=== PATIENT | male | born 1950 | race Caucasian/White ===

== ENCOUNTER 2018-11-13 11:20 | Inpatient (IN) ==
--- NOTE | 2018-11-13 11:31 | Emergency Department Note ---
Disposition Clinical Impression: NSTEMI (non-ST elevated myocardial infarction), Altered level of consciousness COPD (chronic obstructive pulmonary disease) Qualifiers: COPD type: unspecified COPD Qualified Code(s): J44.9 - Chronic obstructive pulmonary disease, unspecified Disposition: Admitted As Inpatient Condition: Fair Referrals: NONE,PCP [Primary Care Provider] - Forms: ED Satisfaction Letter Time of Disposition: 12:56 General Adult HPI - General Stated complaint: Chest Pain Time Seen by Provider: 11/13/18 11:28 - Related Data Previous Rx's Medication Instructions Recorded HYDROcodone/Acet 5/325 mg [[place] 1 tab PO Q4H PRN 3 Days #15 tab 04/26/18 5-325 mg] Allergies Allergy/AdvReac Type Severity Reaction Status Date / Time No Known Allergies Allergy Verified 04/26/18 14:16 Past Medical History - Past Medical History Medical history: Reports: no medical history Psychiatric history: Reports: depression - Social History Smoking Status: Current some day smoker Alcohol use: Reports: none Drug use: Reports: none Course Vital Signs Temperature 97.7 F 11/13/18 11:22 Pulse Rate 91 11/13/18 11:22 Respiratory Rate 20 11/13/18 11:22 Blood Pressure 94/73 11/13/18 11:22 O2 Sat by Pulse Oximetry 96 11/13/18 11:22 Temperature 97.7 F 11/13/18 11:22 Pulse Rate 91 11/13/18 11:22 Respiratory Rate 20 11/13/18 11:22 Blood Pressure 103/71 11/13/18 12:02 O2 Sat by Pulse Oximetry 96 11/13/18 11:22 Oxygen Delivery Oxygen Delivery Room Air Medical Decision Making - Lab Data Result diagrams: 11/13/18 11:46 11/13/18 11:46 Lab Results 11/13/18 11/13/18 Range/Units 11:46 11:46 WBC 11.4 H (4.3-11.1) K/mcL RBC 4.23 (4.19-5.50) M/mcL Hgb 12.7 L (12.9-16.9) g/dL Hct 37.9 (37.5-50.1) % MCV 89.6 (83.0-100.0) fL MCH 30.0 (28.0-33.3) pg MCHC 33.5 (31.6-35.5) g/dL RDW 13.2 (11.5-14.5) % Plt Count 203 (140-400) K/mcL MPV 10.1 (9.4-12.4) fL Immature Gran % 0.3 (0-4) % Seg Neutrophils % 83.6 % Lymphocytes % 8.0 % Monocytes % 8.0 % Eosinophils % 0.0 % Basophils % 0.1 % Neutrophils # 9.6 H (1.6-8.9) K/mcL Lymphocytes # 0.9 (0.6-4.6) K/mcL Monocytes # 0.9 (0.0-1.3) K/mcL Eosinophils # 0.0 (0.0-0.6) K/mcL Basophils # 0.0 (0.0-0.2) K/mcL Sodium 138 (136-145) mEq/L Potassium 4.5 (3.5-5.1) mEq/L Chloride 104 (98-107) mEq/L Carbon Dioxide 26 (23-29) mEq/L BUN 20 (8-23) mg/dL Creatinine 0.95 (0.70-1.30) mg/dL Est GFR ( Amer) > 60 (> 60) Est GFR (Non-Af Amer) > 60 (> 60) BUN/Creatinine Ratio 21 (6-26) Glucose 134 H (70-105) mg/dL Calculated Osmolality 291 (280-300) Calcium 9.4 (8.6-10.3) mg/dL Troponin I 0.10 H* (< 0.04) ng/mL Critical Care Time Critical Care Time: No Attestation Statement - Attestation Attestation: I examined this patient and my medical decision-making was reviewed with the ORCHID WORKER/PA/Advanced Practice Nurse/Resident Physician. I agree with the documented findings, disposition and treatment plan as described except to the extent set forth below. I did see the patient immediately upon arrival and also spoke with the paramedics and the story is that he was at the hardener helper yesterday and they thought he was confused [facility] him with altered consciousness with a negative ct scan of the brain and the patient did have an EKG yesterday and I did review that which showed ST elevation anteriorly almost identical to the EKG that was done today while the patient was having anjel st pain. At this point he denies any chest pain or tightness or discomfort or pressure or heaviness whatsoever. He has his chronic dyspnea but no new dyspnea. No diaphoresis. He does know the name of the hospital and the year and the name of the president and he will have a repeat EKG done now. We are told that his troponin was 0.13 at the [place] and this will be repeated also. I did speak with the aircraft engine installer at 1055 when the new the patient was on the way here to give them a heads up but does not seem at this point the patient will be a STEMI alert. 1128 I did review the EKG and also sent this to the candle wrapping machine operator. The patient has normal sinus rhythm with a rate of [address] and several millimeters of ST elevation in leads V2, V3 and V4 which is very similar to the EKG which was done earlier this morning and also very similar to an EKG that was done yesterday. The patient remains pain-free at this time. Labs are pending here. Patient will be admitted. [address] did speak with Dr[address] Link and he did review the EKG from our emergency department here at 11:31 AM and agrees that the patient is not a emergent catheterization candidate and agrees with the aspirin. Would like a inpatient echo to be done but this does not need to be done stat. I did inform him of the elevated troponin from the [facility]. He agrees with admission to the hospitalist with diagnostic cardiology consult in and we will get these things done when our troponin result returns here. 1146 Hospitalist has accepted the patient for admission. I did speak with Dr. link again and he does not feel he needs consult did. The repeat troponin is going down and is now 0.10. Patient is bright and alert. He is not in any respiratory distress. Blood pressure will be watched closely here in the hospit al. It has increased and is now systolic 103 but the patient is asymptomatic regarding the blood pressure. 1253
--- NOTE | 2018-11-13 11:31 | Emergency Department Note ---
Disposition Clinical Impression: NSTEMI (non-ST elevated myocardial infarction), Altered level of consciousness COPD (chronic obstructive pulmonary disease) Qualifiers: COPD type: unspecified COPD Qualified Code(s): J44.9 - Chronic obstructive pulmonary disease, unspecified Disposition: Admitted As Inpatient Condition: Fair Referrals: NONE,PCP [Non-Partnered Physician] - Time of Disposition: 14:00 Chest Pain HPI - General Chief Complaint: ED Chest Pain Stated Complaint: Chest Pain Time Seen by Provider: 11/13/18 11:28 Source: patient Limitations: no limitations Vital Signs Reviewed: Yes Nursing Notes Reviewed: Yes - History of Present Illness HPI Narrative: Mr. Swain is a 67M who presents today from the [facility] for reported EKG changes. He was admitted to the [facility] yesterday after reported confusion while at the ophthalmologists office. Patient is currently alert and oriented 3 and aware of recent events. He currently has no complaints. Denies any chest pain, shortness of breath, nausea, vomiting, dizziness, lightheadedness, headaches, numbness or tingling. Reported he had none of these symptoms yesterday either. Of note an EKG was obtained at the [facility] yesterday which showed slight ST segment elevation in leads V2 through V4. The same ST segment changes were seen and a repeat [facility] EKG as well today. Reported troponin from [facility] was 0.13. - Related Data Home Medications Medication Instructions Recorded Confirmed No Known Home Drugs 11/13/18 11/13/18 Allergies Allergy/AdvReac Type Severity Reaction Status Date / Time No Known Allergies Allergy Verified 04/26/18 14:16 All systems ED: reviewed and negative except as stated. Review of Systems: As Per HPI Constitutional: Denies: fever, chills Cardiovascular: Denies: chest pain, palpitations, edema, syncope Respiratory: Denies: cough, dyspnea, wheezes Gastrointestinal: Denies: abdominal pain, nausea, vomiting Chest Pain PMH - Past Medical History Medical history: Reports: no medical history Psychiatric history: Reports: depression - Social History Smoking Status: Current some day smoker Alcohol use: Reports: none Drug use: Reports: none Physical Exam Constitutional: Elderly appearing male in no acute distress. Head: Normocephalic, atraumatic Eyes: PERRL, EOMI, sclera anicteric Lungs: Clear to auscultation bilaterally. Nonlabored breathing. No wheezes, rales, or rhonchi noted. Cardiac: RRR. +s1 +S2 Grade 2 blowing systolic murmur. No clicks, or rubs noted. GI: Abdomen soft, nontender, nondistended. Extremities: Warm, radial pulses +2 and symmetrical. No cyanosis, pedal edema, or calf tenderness. Neuro: Alert and oriented 3. No focal deficits. Normal speech. Skin: Warm, dry, and intact. Course Course Narrative: Initial history and physical exam concerning for ACS. Initial evaluation included EKG, chest x-ray, CBC, BMP, and troponin. EKG showed continued ST segment elevation in V2 through the former as seen on previous EKGs from the [facility]. Chest x-ray was without acute abnormality. The labs were grossly unremarkable, however troponin was elevated at 0.10 which is decreased when compared to troponin from [facility]. Patient remained asymptomatic throughout this entire process with no acute complaints. Patient's case was discussed with Dr. Elizondo of cardiology, including personally reviewing the EKG. He agreed that patient is not a candidate for emergent cardiac catheterization at this point. Recommended aspirin. Stated he would prefer the patient have an inpatient echo, but this does not need to be done urgently. Discussed patient's case with hospitalist, Dr. Cano, who accepted the patient for admission. Patient stable for transfer to floor. Vital Signs Temperature 97.7 F 11/13/18 11:22 Pulse Rate 91 11/13/18 11:22 Respiratory Rate 20 11/13/18 11:22 Blood Pressure 94/73 11/13/18 11:22 O2 Sat by Pulse Oximetry 96 11/13/18 11:22 Temperature 97.8 F 11/13/18 16:44 Pulse Rate 82 11/13/18 16:44 Respiratory Rate 16 11/13/18 16:44 Blood Pressure 112/64 11/13/18 16:44 O2 Sat by Pulse Oximetry 96 11/13/18 16:44 Oxygen Delivery Oxygen Delivery Room Air Chest Pain - Medical Records Medical records reviewed: Yes I reviewed the patient's medical records. - Lab Data Lab results reviewed: Yes I reviewed the patient's lab results. Result diagrams: 11/13/18 15:51 11/13/18 11:46 Lab Results 11/13/18 11/13/18 11/13/18 Range/Units 11:46 11:46 11:46 WBC 11.4 H (4.3-11.1) K/mcL RBC 4.23 (4.19-5.50) M/mcL Hgb 12.7 L (12.9-16.9) g/dL Hct 37.9 (37.5-50.1) % MCV 89.6 (83.0-100.0) fL MCH 30.0 (28.0-33.3) pg MCHC 33.5 (31.6-35.5) g/dL RDW 13.2 (11.5-14.5) % Plt Count 203 (140-400) K/mcL MPV 10.1 (9.4-12.4) fL Immature Gran % 0.3 (0-4) % Seg Neutrophils % 83.6 % Lymphocytes % 8.0 % Monocytes % 8.0 % Eosinophils % 0.0 % Basophils % 0.1 % Neutrophils # 9.6 H (1.6-8.9) K/mcL Lymphocytes # 0.9 (0.6-4.6) K/mcL Monocytes # 0.9 (0.0-1.3) K/mcL Eosinophils # 0.0 (0.0-0.6) K/mcL Basophils # 0.0 (0.0-0.2) K/mcL PT (9.4-12.1) Seconds INR Heparin Anti-Xa, Unfract (0.30-0.70) IU/mL Sodium 138 (136-145) mEq/L Potassium 4.5 (3.5-5.1) mEq/L Chloride 104 (98-107) mEq/L Carbon Dioxide 26 (23-29) mEq/L BUN 20 (8-23) mg/dL Creatinine 0.95 (0.70-1.30) mg/dL Est GFR ( Amer) > 60 (> 60) Est GFR (Non-Af Amer) > 60 (> 60) BUN/Creatinine Ratio 21 (6-26) Glucose 134 H (70-105) mg/dL Calculated Osmolality 291 (280-300) Calcium 9.4 (8.6-10.3) mg/dL Magnesium (1.6-2.6) mg/dL Troponin I 0.10 H* (< 0.04) ng/mL B-Natriuretic Peptide 613 H (Less than 100) pg/mL 11/13/18 11/13/18 11/13/18 Range/Units 13:57 13:57 15:51 WBC 12.5 H (4.3-11.1) K/mcL RBC 4.21 (4.19-5.50) M/mcL Hgb 12.8 L (12.9-16.9) g/dL Hct 37.2 L (37.5-50.1) % MCV 88.4 (83.0-100.0) fL MCH 30.4 (28.0-33.3) pg MCHC 34.4 (31.6-35.5) g/dL RDW 13.4 (11.5-14.5) % Plt Count 187 (140-400) K/mcL MPV 10.2 (9.4-12.4) fL Immature Gran % (0-4) % Seg Neutrophils % % Lymphocytes % % Monocytes % % Eosinophils % % Basophils % % Neutrophils # (1.6-8.9) K/mcL Lymphocytes # (0.6-4.6) K/mcL Monocytes # (0.0-1.3) K/mcL Eosinophils # (0.0-0.6) K/mcL Basophils # (0.0-0.2) K/mcL PT (9.4-12.1) Seconds INR Heparin Anti-Xa, Unfract (0.30-0.70) IU/mL Sodium (136-145) mEq/L Potassium (3.5-5.1) mEq/L Chloride (98-107) mEq/L Carbon Dioxide (23-29) mEq/L BUN (8-23) mg/dL Creatinine (0.70-1.30) mg/dL Est GFR ( Amer) (> 60) Est GFR (Non-Af Amer) (> 60) BUN/Creatinine Ratio (6-26) Glucose (70-105) mg/dL Calculated Osmolality (280-300) Calcium (8.6-10.3) mg/dL Magnesium 2.3 (1.6-2.6) mg/dL Troponin I 0.12 H* (< 0.04) ng/mL B-Natriuretic Peptide (Less than 100) pg/mL 11/13/18 Range/Units 15:51 WBC (4.3-11.1) K/mcL RBC (4.19-5.50) M/mcL Hgb (12.9-16.9) g/dL Hct (37.5-50.1) % MCV (83.0-100.0) fL MCH (28.0-33.3) pg MCHC (31.6-35.5) g/dL RDW (11.5-14.5) % Plt Count (140-400) K/mcL MPV (9.4-12.4) fL Immature Gran % (0-4) % Seg Neutrophils % % Lymphocytes % % Monocytes % % Eosinophils % % Basophils % % Neutrophils # (1.6-8.9) K/mcL Lymphocytes # (0.6-4.6) K/mcL Monocytes # (0.0-1.3) K/mcL Eosinophils # (0.0-0.6) K/mcL Basophils # (0.0-0.2) K/mcL PT 11.0 (9.4-12.1) Seconds INR 1.0 Heparin Anti-Xa, Unfract 0.19 L (0.30-0.70) IU/mL Sodium (136-145) mEq/L Potassium (3.5-5.1) mEq/L Chloride (98-107) mEq/L Carbon Dioxide (23-29) mEq/L BUN (8-23) mg/dL Creatinine (0.70-1.30) mg/dL Est GFR ( Amer) (> 60) Est GFR (Non-Af Amer) (> 60) BUN/Creatinine Ratio (6-26) Glucose (70-105) mg/dL Calculated Osmolality (280-300) Calcium (8.6-10.3) mg/dL Magnesium (1.6-2.6) mg/dL Troponin I (< 0.04) ng/mL B-Natriuretic Peptide (Less than 100) pg/mL - Radiology Data Radiology results reviewed: Yes I reviewed the patient's radiology results. Chest X-Ray 11/13/18 11:28 IMPRESSION: No acute cardiopulmonary process. D/ / Kirk Flores MD / Kirk Flores MD Interpreting Provider: Kirk Flores MD - EKG Data EKG attestation: Yes I reviewed and interpreted this EKG. EKG shows normal: sinus rhythm Rate: normal Rhythm: NSR [place]/QRS: normal ST segment elevation in: v2, v3, v4 When compared to previous EKG there are: no significant changes (when compared to [facility] ) Heart Score - Score History: Slightly Suspicious EKG: Non Specific repolarisation Disturbance Age: Greater than 65 Risk Factors: No risk factors known Troponin: 1-3x normal limit HEART Score Total: 4
[2018-11-13] MEDS ORDERED: 0.9 % Sodium Chloride 500 ML IVC ONE (11:45)
[2018-11-13 12:05] LABS: Basophils % 0.1 %; Hematocrit 37.9 % (37.5-50.1); Hemoglobin 12.7 g/dL (12.9-16.9); Immature Granulocytes % 0.3 % (0-4); Lymphocytes # 0.9 K/mcL (0.6-4.6); Mean Corpuscular HGB Conc 33.5 g/dL (31.6-35.5); Mean Corpuscular Volume 89.6 fL (83.0-100.0); Mean Platelet Volume 10.1 fL (9.4-12.4); Monocytes # 0.9 K/mcL (0.0-1.3); Neutrophils # 9.6 K/mcL (1.6-8.9); Platelet Count 203 K/mcL (140-400); Red Blood Count 4.23 M/mcL (4.19-5.50); Red Cell Distribution Width 13.2 % (11.5-14.5); Segmented Neutrophils % 83.6 %
[2018-11-13 12:21] LABS: BUN/Creatinine Ratio 21 (6-26); Blood Urea Nitrogen 20 mg/dL (8-23); Calcium 9.4 mg/dL (8.6-10.3); Carbon Dioxide 26 mEq/L (23-29); Chloride 104 mEq/L (98-107); Glucose 134 mg/dL (70-105); Osmolality,Calculated 291 (280-300); Potassium 4.5 mEq/L (3.5-5.1); Sodium 138 mEq/L (136-145); eGFR For Non-African Americans > 60 (> 60)
[2018-11-13] MEDS ORDERED: *HR* Promethazine 25 MG/ML VIAL IVP PRN (13:38)
[2018-11-13] MEDS ORDERED: Mag Hydrox/Al Hydrox/Simeth 30 ML UDC PO PRN (13:38)
[2018-11-13] MEDS ORDERED: Acetaminophen 325 MG TABLET PO PRN (13:38)
[2018-11-13] MEDS ORDERED: Naloxone 0.4 MG/ML INJ IVP PRN (13:38)
[2018-11-13] MEDS ORDERED: MOM Conc 10 ML UD.LIQ PO PRN (13:38)
[2018-11-13] MEDS ORDERED: Ondansetron 4 MG/2 ML VIAL IVP PRN (13:38)
[2018-11-13] MEDS ORDERED: Ipratropium/Albuterol Neb 3 ML IH PRN (13:43)
--- NOTE | 2018-11-13 14:04 | Internal Med History&Physical ---
Date of Encounter: 11/13/18 Time of Encounter: 13:46 Internal Medicine - H&P: HPI Admitted From: Home Plans for Post Hospital Care: Home History of present illness: Mr. Swain is a 67 year old male with history of CAD and the smoking transferred from the [facility] because of chest pain and abnormal EKG. Patient is a poor historian, part of the history was obtained from chart review. Patient was seen by his project management analyst on Friday and was found to be confused, he was subsequently sent to the [facility], where he developed later chest pain with abnormal EKG. Labs at that time also showed elevated troponin at 0.13. CBC: WBC 6.1, RBC 4.66, Hgb 14.3, HCT 40.8, platelet 225. More labs are as follows. BMP: sodium 13 138, potassium 4.6, chloride 107, CO2 25, glucose 144, calcium 9.1, 19, creatinine 0.79, BNP 1270. An ABG was obtained which showed pH 7.41, PCO2 36, PO2 75, lactate 0.5, HCO3 23, base excess -1. TSH 0.0171, free T4 1 0.18, AST/ALT 16/18, total bili 1.0, alkaline phosphatase 9.0, total protein 6.6, albumin 3.4, cholesterol 144, TG 50, HDL 53, and LDL 81. The chest x-ray at that time showed no acute radiological abnormalities and CT head also showed no acute intracranial abnormalities. He was treated with oral aspirin, IV Rocephin, Lovenox for DVT prophylaxis, oral isosorbide and metoprolol, IV steroids and breathing treatment was also given. On 11/13, He was transferred to this institution for further evaluation, cardiology was consulted, EKG and labs was reviewed, patient was not deemed as cardiac catheter candidate, and patient was recommended medical management. Patient is admitted under medical team and cardiology will be consulted. CODE STATUS discussed with patient, he wishes full code. Past Med Surg Social Fam HX - Past Medical History Medical history: no medical history Psychiatric history: depression - Social History Smoking Status: Current some day smoker Alcohol use: none Drug use: none Internal Medicine - H&P: Meds No Known Home Drugs 11/13/18 [History] Allergy/AdvReac Type Severity Reaction Status Date / Time No Known Allergies Allergy Verified 04/26/18 14:16 All Systems PM: A 10-system review of systems was performed and is negative for pertinent findings except as documented above in the HPI. Review of systems: REVIEW OF SYSTEMS: CONSTITUTIONAL: No weight loss, fever, chills, weakness or fatigue. HEENT: Eyes: No visual loss, blurred vision, double vision or yellow sclerae. Ears, Nose, Throat: No hearing loss, sneezing, congestion, runny nose or sore throat. SKIN: No rash or itching. CARDIOVASCULAR: see HPI. RESPIRATORY: No shortness of breath, cough or sputum. GASTROINTESTINAL: No anorexia, nausea, vomiting or diarrhea. No abdominal pain or blood. GENITOURINARY: No dysuria, urgency, or frequency. NEUROLOGICAL: No headache, dizziness, syncope, paralysis, ataxia, numbness or tingling in the extremities. No change in bowel or bladder control. MUSCULOSKELETAL: No muscle, back pain, joint pain or stiffness. HEMATOLOGIC: No anemia, bleeding or bruising. LYMPHATICS: No enlarged nodes. No history of splenectomy. PSYCHIATRIC: No history of depression or anxiety. ENDOCRINOLOGIC: No reports of sweating, cold or heat intolerance. No polyuria or polydipsia. - Constitutional Vitals: Temp Pulse Resp BP Pulse Ox 97.7 F 91 20 103/71 96 11/13/18 11:22 11/13/18 11:22 11/13/18 11:22 11/13/18 12:02 11/13/18 11:22 General appearance: Present: A&O X 2 Exam: PHYSICAL EXAMINATION: GENERAL APPEARANCE: The patient is alert, oriented and in no acute distress. HEENT: Head is normocephalic. The sinuses are nontender. Pupils are equal and reactive. The nares are patent. Oropharynx clear without lesions. NECK: Supple without lymphadenopathy. HEART: Regular rate and rhythm. LUNGS: No crackles or wheezes are heard. ABDOMEN: Soft, nontender, nondistended with good bowel sounds heard. Inguinal area is normal. EXTREMITIES: Without cyanosis, clubbing or edema. NEUROLOGICAL: Gross nonfocal. SKIN: trace edema. Internal Med - H&P Results - Labs CBC & Chem 7: 11/13/18 11:46 11/13/18 11:46 Labs: Short CBC 11/13/18 Range/Units 11:46 WBC 11.4 H (4.3-11.1) K/mcL Hgb 12.7 L (12.9-16.9) g/dL Hct 37.9 (37.5-50.1) % Plt Count 203 (140-400) K/mcL Neutrophils # 9.6 H (1.6-8.9) K/mcL BMP 11/13/18 11:46 Sodium 138 Potassium 4.5 Chloride 104 Carbon Dioxide 26 BUN 20 Creatinine 0.95 Glucose 134 H Calcium 9.4 Cardiac Enzymes 11/13/18 Range/Units 11:46 Troponin I 0.10 H* (< 0.04) ng/mL - Impressions ITS Impressions Chest X-Ray 11/13/18 11:28 IMPRESSION: No acute cardiopulmonary process. D/ / Kirk Flores MD / Kirk Flores MD Interpreting Provider: Kirk Flores MD - Assessment and Plan (1) Altered level of consciousness Current Visit: Yes Status: Acute Assessment and plan: 85-year-old male with history of CAD and a smoker presented with acute mental status change and the abnormal EKG. Workup at outside hospital was unrevealing. UA was normal, chest x-ray and head CT were unremarkable. Patient received 1 dose of Rocephin at a [facility]. Unclear his mental status change is related to acute ND. His mental status seems improved upon my assessment. We will continue to treat his underlying medical conditions including acute ND and COPD. Continue monitoring mental status. (2) Acute myocardial infarction Current Visit: Yes Status: Acute Assessment and plan: Patient developed chest pain while at the [facility], EKG obtained at that time showed ST-T elevation on V2 to V4 with elevated troponin. Patient received aspirin, Lovenox, metoprolol, and isosorbide. Upon arrival to this hospital, a repeat EKG redemonstrated ST-T elevation in V2 to V4 with deep Q wave. Cardiology was consulted, patient was not deemed as a candidate for emergent cardiac catheter, medical management was recommended. We will continue monitoring troponin, telemetry monitoring, EKG as needed. BP was borderline low, likely not tolerate BP medications, will continue aspirin, will add Plavix. We will restart patient on metoprolol once his BP improves. Echocardiogram in the morning. Cardiology following. Qualifiers: Myocardial infarction type: unspecified Involved coronary artery: unspecified coronary artery Qualified Code(s): I21.9 - Acute myocardial infarction, unspecified (3) Smoker Current Visit: No Status: Chronic Assessment and plan: Smoking cessation discussed with patient, he understood. (4) COPD (chronic obstructive pulmonary disease) Current Visit: Yes Status: Acute Assessment and plan: Mere never been diagnosis with COPD, however, he does have history of smoking, diffuse wheezing appreciated on physical exam. Or start patient on DuoNeb scheduled and as needed. Qualifiers: COPD type: unspecified COPD Qualified Code(s): J44.9 - Chronic obstructive pulmonary disease, unspecified (5) DVT prophylaxis Current Visit: Yes Status: Acute Assessment and plan: Heparin subcutaneous. - Time Spent With Patient Total time spent is greater than 50% in coordination of care (as documented) at patient's floor/unit and/or counseling patient: Greater than 35 minutes
[2018-11-13] MEDS ORDERED: Furosemide 40 MG/4 ML VIAL IVP ONE (15:08)
[2018-11-13] MEDS ORDERED: *HR* Heparin 5,000 UNIT/ML VIAL IVP PRN ×2 (15:10)
[2018-11-13] MEDS: Ipratropium/Albuterol Neb 3 ML IH SCH ×3 (15:44→23:25)
[2018-11-13] MEDS: Heparin 25,000 UNIT/250 ML D5W 25,000 UNIT/250 ML IV.SOLN IVC SCH (15:45)
[2018-11-13 16:06] LABS: Hematocrit 37.2 % (37.5-50.1); Hemoglobin 12.8 g/dL (12.9-16.9); Mean Corpuscular HGB Conc 34.4 g/dL (31.6-35.5); Mean Corpuscular Hemoglobin 30.4 pg (28.0-33.3); Mean Corpuscular Volume 88.4 fL (83.0-100.0); Mean Platelet Volume 10.2 fL (9.4-12.4); Platelet Count 187 K/mcL (140-400); Red Blood Count 4.21 M/mcL (4.19-5.50); Red Cell Distribution Width 13.4 % (11.5-14.5)
[2018-11-13 16:12] LABS: Heparin anti-factor XA UFH 0.19 IU/mL (0.30-0.70)
--- NOTE | 2018-11-13 16:51 | Cardiology Consult Note ---
Date of Encounter: 11/13/18 Time of Encounter: 14:00 Assessment and Plan (1) NSTEMI (non-ST elevated myocardial infarction) Current Visit: Yes Status: Acute type II vs late presentation of anterolaterl OK or myocardial injury from CHF. - c/w ASA, plavix - add statin - heparin drip - TTE - decision of [place] [facility] (2) CAD (coronary artery disease) Current Visit: Yes Status: Acute reportedly had piror stent, unclear detail. Not on any meds at home per pt. - c/w ASA - need statin - need [facility]) Qualifiers: Coronary Disease-Associated Artery/Lesion type: [place] artery [place] vs. transplanted heart: [place] heart Associated angina: with unspecified angina Qualified Code(s): I25.119 - Atherosclerotic heart disease of [place] coronary artery with unspecified angina pectoris (3) CHF exacerbation Current Visit: Yes Status: Acute mild fluid overload, LVEF unclear - lasix 20 iv prn if dyspnea - further med rec based on TTE Qualifiers: Heart failure type: unspecified Qualified Code(s): I50.9 - Heart failure, unspecified Discussion w patient/family: The assessment and plan as outlined above was discussed with the patient and/or family members who expressed understanding and agreement. All questions were answered. Thank you for involving us in the care of your patient. Please call with any questions. History of Present Illness Consult date: 11/13/18 Requesting physician: Triston Archer Consult reason: OK Chief complaint: cp History of present illness: Mr. Swain is a 67 year old male ho CAD remote stenting, tobacco, MARTA, OA back pain. Transfer from [place] for chest pain concern for acute [place]. P/w cough several days and AMS to [place] [id number], Imp bronchitis, CT head no acute findings. C/o chest pain at rest today, moderate to severe general front chest w /o radiation, lasting "1 hour". Transfer to [place] concerning "STEMI" on ECG. Review of ECG MI [id number] [place] [id number] and [id number] [place]: SR, LVH with repo abn, persistent V2-4 Q wave with EMERSON 1mm w/o dynamic changes. Ddx recent ant-sep OK or prior ant-sept OK with aneurysmal changes. Trop 0.13 [facility] 0.1x2 [place]. BNP 600. No chest pain on interview, no dyspnea, palpitations. Intermittent LE edema at baseline with limited activity. Stated he's not on any meds at home. No prior TTE. Past Med Surg Social Fam HX - Past Medical History Medical history: no medical history Psychiatric history: depression - Social History Smoking Status: Current some day smoker Alcohol use: none Drug use: none - Additional Family History Additional family history: Non-contributory. Medications and Allergies No Known Home Drugs 11/13/18 [History] Allergy/AdvReac Type Severity Reaction Status Date / Time No Known Allergies Allergy Verified 04/26/18 14:16 All Systems Review: The remainder of the systems were reviewed and are negative - Cardiovascular Cardiovascular: as per HPI - Respiratory Respiratory: cough - Hematological/Lymphatic Hematologic/Lymphatic: no easy bruising Physical Examination Vital Signs, Last 4 Hours Temp Pulse Resp BP Pulse Ox 11/13/18 14:40 97.6 F 85 16 108/68 95 11/13/18 14:31 18 110/78 11/13/18 12:02 103/71 Other: General: NAD, AAO, slow response with yes/no answers HEENT: anicteric Neck: no JVD Chest: coarse BS B/L, no W/R/C Heart: RRR, S1/vague A2, no S3/S4, 3/6 SM max R-2nd ICS w/ B/L carotid radiation, no G/R Abdominal: BS +, soft, ND, NT Peripheral Pulses: radial pulse 2+ B/L, DP 1+ B/L Skin/Extremities: no cyanosis, B/L LE edema to low shins Neurological: grossly non-focal. Results 11/13/18 11:46 11/13/18 11:46 Lab Results 11/13/18 11/13/18 11/13/18 11:46 11:46 11:46 WBC 11.4 H Hgb 12.7 L Hct 37.9 Plt Count 203 Sodium 138 Potassium 4.5 Chloride 104 Carbon Dioxide 26 BUN 20 Creatinine 0.95 Glucose 134 H Calcium 9.4 Magnesium Troponin I 0.10 H* B-Natriuretic Peptide 613 H 11/13/18 11/13/18 13:57 13:57 WBC Hgb Hct Plt Count Sodium Potassium Chloride Carbon Dioxide BUN Creatinine Glucose Calcium Magnesium 2.3 Troponin I 0.12 H* B-Natriuretic Peptide - Imaging and Cardiology Chest Xray: report reviewed Other Results: [facility] - E[facility] Interpretation EKG results cardiology: personally reviewed Consult Discharge Plan - Plan Referrals: NONE,PCP [Primary Care Provider] -
[2018-11-13] MEDS ORDERED: *HR* Heparin 5,000 UNIT/ML VIAL SQ SCH (18:00)
[2018-11-13] MEDS ORDERED: Perflutren Lipid Microsphere 1.3 ML in 0.9 % Sodium Chloride 8.7 ML IVP ONE (18:58)
[2018-11-13] MEDS ORDERED: Nystatin POWDER 30 GM BOTTLE TP PRN (22:03)
[2018-11-13] MEDS: traMADol 50 MG TABLET PO PRN (22:12)
[2018-11-14 04:19] LABS: Basophils % 0.4 %; Eosinophils % 0.3 %; Hematocrit 36.1 % (37.5-50.1); Hemoglobin 12.4 g/dL (12.9-16.9); Immature Granulocytes % 0.5 % (0-4); Lymphocytes # 1.9 K/mcL (0.6-4.6); Lymphocytes % 25.5 %; Mean Corpuscular HGB Conc 34.3 g/dL (31.6-35.5); Mean Corpuscular Hemoglobin 30.5 pg (28.0-33.3); Mean Corpuscular Volume 88.7 fL (83.0-100.0); Mean Platelet Volume 10.7 fL (9.4-12.4); Monocytes # 0.6 K/mcL (0.0-1.3); Monocytes % 8.2 %; Neutrophils # 4.9 K/mcL (1.6-8.9); Platelet Count 179 K/mcL (140-400); Red Blood Count 4.07 M/mcL (4.19-5.50); Red Cell Distribution Width 13.5 % (11.5-14.5); Segmented Neutrophils % 65.1 %
[2018-11-14] MEDS: Ipratropium/Albuterol Neb 3 ML IH SCH ×2 (04:29→07:27)
[2018-11-14 04:35] LABS: Alanine Aminotransferase 10 Units/L (7-52); Albumin 3.8 g/dL (3.5-5.7); Albumin/Globulin Ratio 1.7 (1.1-2.2); Alkaline Phosphatase 68 Units/L (34-104); Aspartate Amino Transferase 13 Units/L (13-39); BUN/Creatinine Ratio 25 (6-26); Bilirubin,Total 0.9 mg/dL (0.3-1.0); Blood Urea Nitrogen 27 mg/dL (8-23); Calcium 8.9 mg/dL (8.6-10.3); Carbon Dioxide 27 mEq/L (23-29); Chloride 103 mEq/L (98-107); Chol/HDL Ratio 3.2 (0-4.9); Cholesterol 142 mg/dL (< 200); Globulin 2.3 g/dL (2.4-3.5); Glucose 124 mg/dL (70-105); HDL Cholesterol 44 mg/dL (40-59); LDL Cholesterol,Calculated 83 mg/dL (0-99); Osmolality,Calculated 291 (280-300); Phosphorous 3.5 mg/dL (2.7-4.5); Potassium 4.2 mEq/L (3.5-5.1); Sodium 137 mEq/L (136-145); Total Protein 6.1 g/dL (6.4-8.9); Triglycerides 77 mg/dL (< 150); eGFR For Non-African Americans > 60 (> 60)
[2018-11-14 04:50] LABS: Thyroid Stimulating Hormone 1.369 mcIU/mL (0.340-5.600)
--- NOTE | 2018-11-14 07:41 | Cardiology Progress Note ---
Date of Encounter: 11/14/18 Time of Encounter: 07:45 Assessment and Plan (1) Elevated troponin I measurement Current Visit: Yes Status: Acute Per Cardiology: Presentation remains somewhat unclear. Records reviewed and the patient seen at the [place] with concerns of cough and weakness. According to records, denied any chest pain, shortness of breath, palpitations. Troponins here 0.10, 0.12, 0.15, and 0.22. ECGs reviewed yesterday by Dr. Elizondo and Dr. Scherer. Currently chest pain-free. Reports last heart catheterization around 2008 and apparent stress test about one year ago at the [place]. We will attempt to obtain medical records. On aspirin, Plavix, and heparin drip for now. (2) Severe aortic stenosis Current Visit: Yes Status: Acute Per Cardiology: ECHO: Impressions: LVEF 55%. Normal LV chamber size and overall function. Mild concentric left ventricular hypertrophy. Mild segmental left ventricular systolic dysfunction. Mild left ventricular diastolic dysfunction. Normal right ventricular structure and function. Severely calcified aortic valve with reduced excursion. Unable to determine the number of leaflets. Severe aortic stenosis. Peak velocity 4.43 m/s. Mean gradient 54 mmHg. JN <1 cm2. Mild aortic regurgitation. No evidence of pulmonary hypertension. 2A nursing unit notified. Left Ventricular Wall Motion: Rest Echo Findings The apical inferior and apical septal ramirez were hypokinetic. All other wall segments showed normal motion. Will need ischemic evaluation in terms of her catheterization. Plan for [facility] Friday. Discussed with Dr. Scherer. Discussion w patient/family: The assessment and plan as outlined above was discussed with the patient and/or family members who expressed understanding and agreement. All questions were answered. Thank you for involving us in the care of your patient. Please call with any questions. Subjective Principal diagnosis: Abnormal ECG, Mild trops Interval history: Patient alert and oriented 3. Soft-spoken and somewhat of a poor historian. Currently denies any chest pain, shortness of breath, palpitations. He reports last catheterization around 2008. He indicates stress test about one year ago at the [place]. No family at bedside. Objective Vital Signs, Last 4 Hours Temp Pulse Resp BP Pulse Ox 11/14/18 04:30 16 92 11/14/18 03:51 98.7 F 77 17 103/65 95 General: Conversant, No Apparent Distress HEENT: Atraumatic, Normocephaly, Mucus Membranes Moist Neck: No JVD, Normal carotid pulses Cardiac: Reg Rate and Rhythm, Normal S1 and S2, Other (Grade III-IV/ murmur noted) Lungs: Normal Breath Sounds, No Wheeze, Rales, Rhonchi Neuro: Alert and responsive, No focal deficits noted Abdomen: Soft, Non-Tender Skin: No rashes noted on visualized skin Musculoskeletal: No Chest Wall Tenderness Extremities: No Clubbing, No Cyanosis, No Edema, Normal Pulses Results 11/14/18 03:49 11/14/18 03:49 Lab Results ITS Impressions Chest X-Ray 11/13/18 11:28 IMPRESSION: No acute cardiopulmonary process. D/ / Kirk Flores MD / Kirk Flores MD Interpreting Provider: Kirk Flores MD Echocardiogram 11/13/18 13:45 Findings: Study Quality * Technically adequate exam. ECG Findings * Normal sinus rhythm. Left Ventricle * LVEF 55%. * Normal LV chamber size and overall function. * Mild concentric left ventricular hypertrophy. * Mild segmental left ventricular systolic dysfunction. * Mild left ventricular diastolic dysfunction. Right Ventricle * Normal right ventricular structure and function. Left Atrium * Normal left atrial size. Right Atrium * Normal right atrial size. Aortic Valve * Severely calcified aortic valve with reduced excursion. Unable to determine the number of leaflets. * Severe aortic stenosis. Peak velocity 4.43 m/s. Mean gradient 54 mmHg. JN <1 cm2. * Mild aortic regurgitation.Active Medications Acetaminophen (Tylenol) 650 mg PO Q6HR PRN PRN Reason: Mild Pain/Fever Stop: 05/15/19 13:39 Al Hydrox/Mg Hydrox/Simethicone (Maalox) 15 ml PO Q6HR PRN PRN Reason: Dyspepsia Stop: 05/15/19 13:39 Albuterol/Ipratropium (Duoneb) 3 ml IH [id number] [id number] Stop: 05/15/19 16:01 Last Admin: 11/14/18 07:27 Dose: Not Given Albuterol/Ipratropium (Duoneb) 3 ml IH [id number] PRN PRN Reason: Shortness Of Breath/Wheezing Stop: 05/15/19 13:44 Aspirin (Aspirin Ec) 81 mg PO DAILY [facility] Stop: 05/16/19 09:01 Last Admin: 11/14/18 08:21 Dose: 81 mg Clopidogrel Bisulfate (Plavix) 75 mg PO DAILY [facility] Stop: 05/16/19 09:01 Last Admin: 11/14/18 08:21 Dose: 75 mg Heparin Sodium (Porcine) (Heparin) 4,000 unit IVP Q6HR PRN PRN Reason: SEE COMMENTS Stop: 05/15/19 15:11 Heparin Sodium (Porcine) (Heparin) 2,000 unit IVP Q6H PRN PRN Reason: SEE COMMENTS Stop: 05/15/19 15:11 Heparin Sodium/Dextrose (Heparin 25,000 Unit/250 Ml D5w) 25,000 unit in 250 mls @ 9.819 mls/hr IVC .Q24H [facility]; Protocol Stop: 05/15/19 15:16 Last Titration: 11/14/18 05:15 Dose: 11.98 unit/kg/hr, 9.8 mls/hr Magnesium Hydroxide (Milk Of Magnesia Conc) 10 ml PO DAILY PRN PRN Reason: Constipation Stop: 05/15/19 13:39 Naloxone HCl (Narcan) 0.4 mg IVP Q2M PRN PRN Reason: SEE COMMENTS Stop: 05/15/19 13:39 Ondansetron HCl (Zofran) 4 mg IVP Q8HR PRN PRN Reason: Nausea And Vomiting Stop: 05/15/19 13:39 Promethazine HCl (Phenergan) 12.5 mg IVP Q6HR PRN PRN Reason: Nausea And Vomiting Stop: 05/15/19 13:39 Tramadol HCl (Ultram) 50 mg PO Q6HR PRN PRN Reason: Moderate Pain Stop: 05/15/19 13:39 Last Admin: 11/14/18 08:21 Dose: 50 mg Mitral Valve * Normal mitral valve structure and function. * No mitral stenosis. * Trace mitral regurgitation. Tricuspid Valve * Normal tricuspid valve structure and function. * Trace tricuspid regurgitation. * No evidence of pulmonary hypertension. Pulmonic Valve * Pulmonic valve not well visualized. * No pulmonic regurgitation. Aorta * Portions of the aortic root visualized appear normal in size. Pericardium * The pericardium appears normal. IVC * Normal IVC dimensions and inspiratory collapse. Pulmonary Artery * Normal visualized portions of the main pulmonary artery. Laboratory Tests 11/13/18 11/13/18 11/13/18 11:46 11:46 13:57 Hgb Hct INR Creatinine Est GFR (Non-Af Amer) Magnesium 2.3 AST ALT Troponin I 0.10 H* B-Natriuretic Peptide 613 H LDL Cholesterol, Calc TSH 11/13/18 11/13/18 11/13/18 13:57 15:51 20:46 Hgb Hct INR 1.0 Creatinine Est GFR (Non-Af Amer) Magnesium AST ALT Troponin I 0.12 H* 0.15 H* B-Natriuretic Peptide LDL Cholesterol, Calc TSH 11/14/18 11/14/18 11/14/18 03:49 03:49 03:49 Hgb 12.4 L Hct 36.1 L INR Creatinine 1.10 Est GFR (Non-Af Amer) > 60 Magnesium AST 13 ALT 10 Troponin I B-Natriuretic Peptide LDL Cholesterol, Calc 83 TSH 1.369 11/14/18 03:49 Hgb Hct INR Creatinine Est GFR (Non-Af Amer) Magnesium AST ALT Troponin I 0.22 H* B-Natriuretic Peptide LDL Cholesterol, Calc TSH - Imaging and Cardiology Echo: report reviewed Cardiac cath: pending Consult Discharge Plan - Plan Referrals: NONE,PCP [Primary Care Provider] -
[2018-11-14] MEDS: Aspirin Enteric Coated 81 MG Tablet PO SCH (08:21)
[2018-11-14] MEDS: traMADol 50 MG TABLET PO PRN (08:21)
--- NOTE | 2018-11-14 10:20 | Electrocardiograph Report ---
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
--- NOTE | 2018-11-14 11:53 | Internal Med Progress Note ---
Hospitalist Progress Note - Encounter Date of Encounter: 11/14/18 Time of Encounter: 09:30 - Subjective Interval History: Patient is lying down in bed. No chest pain. No nausea or vomiting. No shortness of breath. No palpitations. No fevers or chills reported overnight. - Exam Vitals: Temp Pulse Resp BP Pulse Ox 98.3 F 79 18 99/58 95 11/14/18 11:24 11/14/18 11:24 11/14/18 11:24 11/14/18 11:24 11/14/18 11:24 Exam: General: Patient is alert, no acute distress, oriented x 3 ENT: Mucous membranes moist Respiratory: Normal breath sounds. No wheezing Cardiovascular: Regular rate and rhythm. s1 and s2 normal , ejection systolic murmur prominent. Mild bilateral pedal edema Abdomen: Abdomen is soft, nontender. Bowel sounds are present Musculoskeletal: Spontaneously moving all extremities Skin: warm, dry, intact. Neuro: Alert oriented x 3 normal cranial nerves, no focal deficits - Assessment and Plan (1) Acute myocardial infarction Current Visit: Yes Status: Acute Assessment and Plan: Possible non-ST elevation HI. Continue IV heparin. Cardiology following. Plan for left heart catheterization on Friday. Troponins still not be. Currently at 0.22. Will continue to trend. (2) Severe aortic stenosis Current Visit: Yes Status: Acute Assessment and Plan: Echocardiogram shows severe aortic stenosis with peak callosity of 4.43. Will need valve replacement. Cardiology following. Plan to continue with ischemic workup. (3) COPD (chronic obstructive pulmonary disease) Current Visit: Yes Status: Chronic Assessment and Plan: Not in acute exacerbation. Continue bronchodilators. (4) Altered level of consciousness Current Visit: Yes Status: Acute Assessment and Plan: Improved currently. Could be related to HI (5) Smoker Current Visit: No Status: Chronic (6) Congestive heart failure Current Visit: Yes Status: Acute Assessment and Plan: Echocardiogram shows EF of 55% with mild LV systolic and diastolic dysfunction.patient received Lasix intravenously. We will continue Lasix orally daily. (7) DVT prophylaxis Current Visit: Yes Status: Acute Assessment and Plan: Patient is currently on IV heparin - Time Spent with Patient Total time spent is greater than 50% in coordination of care (as documented) at patient's floor/unit and/or counseling patient: Internal Medicine: Result - Labs CBC & Chem 7: 11/14/18 03:49 11/14/18 03:49 Labs: Short CBC 11/13/18 11/13/18 11/14/18 Range/Units 11:46 15:51 03:49 WBC 11.4 H 12.5 H 7.5 (4.3-11.1) K/mcL Hgb 12.7 L 12.8 L 12.4 L (12.9-16.9) g/dL Hct 37.9 37.2 L 36.1 L (37.5-50.1) % Plt Count 203 187 179 (140-400) K/mcL Neutrophils # 9.6 H 4.9 (1.6-8.9) K/mcL BMP 11/13/18 11/14/18 11:46 03:49 Sodium 138 137 Potassium 4.5 4.2 Chloride 104 103 Carbon Dioxide 26 27 BUN 20 27 H Creatinine 0.95 1.10 Glucose 134 H 124 H Calcium 9.4 8.9 Cardiac Enzymes 11/13/18 11/13/18 11/13/18 Range/Units 11:46 13:57 20:46 Troponin I 0.10 H* 0.12 H* 0.15 H* (< 0.04) ng/mL 11/14/18 Range/Units 03:49 Troponin I 0.22 H* (< 0.04) ng/mL Liver Function 11/14/18 Range/Units 03:49 Total Bilirubin 0.9 (0.3-1.0) mg/dL AST 13 (13-39) Units/L ALT 10 (7-52) Units/L Alkaline Phosphatase 68 (34-104) Units/L Albumin 3.8 (3.5-5.7) g/dL - ABG Interpretation ABG results: PT/INR, D-dimer PT 11.0 Seconds (9.4-12.1) 11/13/18 15:51 - Impressions Impressions Chest X-Ray 11/13/18 11:28 IMPRESSION: No acute cardiopulmonary process. D/ / Kirk Flores MD / Kirk Flores MD Interpreting Provider: Kirk Flores MD Echocardiogram 11/13/18 13:45 Impressions: LVEF 55%. Normal LV chamber size and overall function. Mild concentric left ventricular hypertrophy. Mild segmental left ventricular systolic dysfunction. Mild left ventricular diastolic dysfunction. Normal right ventricular structure and function. Severely calcified aortic valve with reduced excursion. Unable to determine the number of leaflets. Severe aortic stenosis. Peak velocity 4.43 m/s. Mean gradient 54 mmHg. JN <1 cm2. Mild aortic regurgitation. No evidence of pulmonary hypertension. 2A nursing unit notified. Left Ventricular Wall Motion: Rest Echo Findings The apical inferior and apical septal ramirez were hypokinetic. All other wall segments showed normal motion. Findings: Study Quality * Technically adequate exam. ECG Findings * Normal sinus rhythm. Left Ventricle * LVEF 55%. * Normal LV chamber size and overall function. * Mild concentric left ventricular hypertrophy. * Mild segmental left ventricular systolic dysfunction. * Mild left ventricular diastolic dysfunction. Right Ventricle * Normal right ventricular structure and function. Left Atrium * Normal left atrial size. Right Atrium * Normal right atrial size. Aortic Valve * Severely calcified aortic valve with reduced excursion. Unable to determine the number of leaflets. * Severe aortic stenosis. Peak velocity 4.43 m/s. Mean gradient 54 mmHg. JN <1 cm2. * Mild aortic regurgitation. Mitral Valve * Normal mitral valve structure and function. * No mitral stenosis. * Trace mitral regurgitation. Tricuspid Valve * Normal tricuspid valve structure and function. * Trace tricuspid regurgitation. * No evidence of pulmonary hypertension. Pulmonic Valve * Pulmonic valve not well visualized. * No pulmonic regurgitation. Aorta * Portions of the aortic root visualized appear normal in size. Pericardium * The pericardium appears normal. IVC * Normal IVC dimensions and inspiratory collapse. Pulmonary Artery * Normal visualized portions of the main pulmonary artery. Consult Discharge Plan - Plan Referrals: NONE,PCP [Primary Care Provider] - (1) Acute myocardial infarction Qualifiers: Myocardial infarction type: non-ST elevation myocardial infarction Qualified Code(s): I21.4 - Non-ST elevation (NSTEMI) myocardial infarction (3) COPD (chronic obstructive pulmonary disease) Qualifiers: COPD type: unspecified COPD Qualified Code(s): J44.9 - Chronic obstructive pulmonary disease, unspecified (6) Congestive heart failure Qualifiers: Heart failure type: combined systolic and diastolic Heart failure chronicity: chronic Qualified Code(s): I50.42 - Chronic combined systolic (congestive) and diastolic (congestive) heart failure
[2018-11-14] MEDS: Heparin 25,000 UNIT/250 ML D5W 25,000 UNIT/250 ML IV.SOLN IVC SCH (17:26)
[2018-11-15 06:29] LABS: Basophils % 0.4 %; Eosinophils # 0.1 K/mcL (0.0-0.6); Eosinophils % 2.4 %; Hematocrit 37.9 % (37.5-50.1); Hemoglobin 12.8 g/dL (12.9-16.9); Immature Granulocytes % 0.4 % (0-4); Lymphocytes # 1.6 K/mcL (0.6-4.6); Lymphocytes % 31.9 %; Mean Corpuscular HGB Conc 33.8 g/dL (31.6-35.5); Mean Corpuscular Hemoglobin 30.7 pg (28.0-33.3); Mean Corpuscular Volume 90.9 fL (83.0-100.0); Mean Platelet Volume 10.3 fL (9.4-12.4); Monocytes # 0.6 K/mcL (0.0-1.3); Monocytes % 11.3 %; Neutrophils # 2.7 K/mcL (1.6-8.9); Platelet Count 170 K/mcL (140-400); Red Blood Count 4.17 M/mcL (4.19-5.50); Red Cell Distribution Width 13.3 % (11.5-14.5); Segmented Neutrophils % 53.6 %
[2018-11-15 06:48] LABS: BUN/Creatinine Ratio 22 (6-26); Blood Urea Nitrogen 20 mg/dL (8-23); Calcium 9.1 mg/dL (8.6-10.3); Carbon Dioxide 24 mEq/L (23-29); Chloride 104 mEq/L (98-107); Glucose 116 mg/dL (70-105); Osmolality,Calculated 288 (280-300); Potassium 4.3 mEq/L (3.5-5.1); Sodium 137 mEq/L (136-145); eGFR For Non-African Americans > 60 (> 60)
--- NOTE | 2018-11-15 06:53 | Event Note ---
Date of Encounter: 11/15/18 Time of Encounter: 06:53 - Cardiology Event Note Plan for [facility] tomorrow for severe . R/B/A discussed. Pt agrees to proceed. NPO after midnight.
[2018-11-15] MEDS: Aspirin Enteric Coated 81 MG Tablet PO SCH (09:34)
[2018-11-15] MEDS: traMADol 50 MG TABLET PO PRN (09:34)
[2018-11-15] MEDS: Furosemide 40 MG TABLET PO SCH (09:34)
--- NOTE | 2018-11-15 09:57 | Electrocardiograph Report ---
[address] [address] Test Date: 2018-11-14 Pat Name: Guillermo Swain Department: 112 Room: 2A24 Gender: M Field Inspector: : 1950 Requested By: Clemente Sarmiento Order Number: [id number] Reading MD: Torin Harman Measurements Intervals [place] Rate: 79 P: 42 AL: 161 QRS: -8 QRSD: 99 T: 126 QT: 363 QTc: 397 Interpretive Statements SINUS RHYTHM LEFT VENTRICULAR HYPERTROPHY AND ST-T CHANGE ANTERIOR MYOCARDIAL INFARCTION, OF INDETERMINATE AGE Electronically Signed On 11-15-2018 9:55:42 EDT by Torin Harman
--- NOTE | 2018-11-15 12:13 | Internal Med Progress Note ---
Hospitalist Progress Note - Encounter Date of Encounter: 11/15/18 Time of Encounter: 10:50 - Subjective Interval History: Patient is somnolent but easily wakes up. Denies any chest pain or palpitations today. No nausea or vomiting. No abdominal pain. Denies any shortness of breath. - Exam Vitals: Temp Pulse Resp BP Pulse Ox 98.4 F 86 16 107/66 95 11/15/18 11:31 11/15/18 11:31 11/15/18 11:31 11/15/18 11:31 11/15/18 11:31 Exam: General: Patient is alert, no acute distress, oriented x 3 ENT: Mucous membranes moist Respiratory: Bilateral end expiratory wheezing. It sounds Cardiovascular: Regular rate and rhythm. s1 and s2 normal systolic murmur present. No pedal edema Abdomen: Abdomen is soft, nontender. Bowel sounds are present Musculoskeletal: Spontaneously moving all extremities Skin: warm, dry, intact. Neuro: Alert oriented x 3 normal cranial nerves, no focal deficits - Assessment and Plan (1) Acute myocardial infarction Current Visit: Yes Status: Acute Assessment and Plan: Patient being treated for non-ST elevation [place]. Troponins peaked at 0.22. Cardiology recommends left heart catheterization tomorrow. Continue IV heparin. High risk for complications. (2) Severe aortic stenosis Current Visit: Yes Status: Acute Assessment and Plan: Cardiology following. Avoid any medications that reduce preload. Ischemic workup pending. (3) COPD (chronic obstructive pulmonary disease) Current Visit: Yes Status: Chronic Assessment and Plan: Patient has bilateral end expiratory wheezing. Will continue bronchodilators. (4) Altered level of consciousness Current Visit: Yes Status: Resolved Assessment and Plan: Improved. Patient is able to answer questions appropriately. (5) Smoker Current Visit: No Status: Chronic (6) Congestive heart failure Current Visit: Yes Status: Acute Assessment and Plan: Continue oral Lasix. Patient appears to be euvolemic at this time (7) DVT prophylaxis Current Visit: Yes Status: Acute Assessment and Plan: On IV heparin - Time Spent with Patient Total time spent is greater than 50% in coordination of care (as documented) at patient's floor/unit and/or counseling patient: Internal Medicine: Result - Labs CBC & Chem 7: 11/15/18 06:08 11/15/18 06:08 Labs: Short CBC 11/15/18 Range/Units 06:08 WBC 5.0 (4.3-11.1) K/mcL Hgb 12.8 L (12.9-16.9) g/dL Hct 37.9 (37.5-50.1) % Plt Count 170 (140-400) K/mcL Neutrophils # 2.7 (1.6-8.9) K/mcL BMP 11/15/18 06:08 Sodium 137 Potassium 4.3 Chloride 104 Carbon Dioxide 24 BUN 20 Creatinine 0.93 Glucose 116 H Calcium 9.1 Cardiac Enzymes 11/14/18 Range/Units 10:59 Troponin I 0.18 H* (< 0.04) ng/mL - ABG Interpretation ABG results: PT/INR, D-dimer PT 11.0 Seconds (9.4-12.1) 11/13/18 15:51 Consult Discharge Plan - Plan Referrals: NONE,PCP [Primary Care Provider] - (1) Acute myocardial infarction Qualifiers: Myocardial infarction type: non-ST elevation myocardial infarction Qualified Code(s): I21.4 - Non-ST elevation (NSTEMI) myocardial infarction (3) COPD (chronic obstructive pulmonary disease) Qualifiers: COPD type: unspecified COPD Qualified Code(s): J44.9 - Chronic obstructive pulmonary disease, unspecified (6) Congestive heart failure Qualifiers: Heart failure type: combined systolic and diastolic Heart failure chronicity: chronic Qualified Code(s): I50.42 - Chronic combined systolic (congestive) and diastolic (congestive) heart failure
[2018-11-15] MEDS: Ipratropium/Albuterol Neb 3 ML IH PRN (12:47)
[2018-11-15] MEDS: Heparin 25,000 UNIT/250 ML D5W 25,000 UNIT/250 ML IV.SOLN IVC SCH (16:12)
--- NOTE | 2018-11-16 08:08 | Event Note ---
Date of Encounter: 11/16/18 Time of Encounter: 08:05 - Cardiology Event Note Laboratory Tests 11/15/18 06:08 Creatinine 0.93 Est GFR (Non-Af Amer) > 60 [facility] pending today.
[2018-11-16] MEDS: Furosemide 40 MG TABLET PO SCH (08:27)
[2018-11-16] MEDS: Aspirin Enteric Coated 81 MG Tablet PO SCH (08:27)
[2018-11-16] MEDS: traMADol 50 MG TABLET PO PRN ×2 (08:48→19:39)
[2018-11-16] MEDS ORDERED: Heparin 1,000 UNITS/500 mL 500 ML ONE (11:53)
[2018-11-16] MEDS ORDERED: 0.9 % Sodium Chloride 1,000 ML ONE ×3 (11:53→13:25)
[2018-11-16] MEDS ORDERED: *HR* Heparin 10,000 UNIT/10 ML VIAL ONE (11:53)
[2018-11-16] MEDS ORDERED: Nitroglycerin 1,000 MCG/10 ML VIAL IV ONE (11:53)
[2018-11-16] MEDS ORDERED: ISOVUE-370 200 ML INFUS..BTL ONE (11:53)
--- NOTE | 2018-11-16 13:17 | Internal Med Progress Note ---
Hospitalist Progress Note - Encounter Date of Encounter: 11/16/18 Time of Encounter: 09:15 - Subjective Interval History: Patient is awake and alert. Denies any chest pain. Is awaiting left heart catheterization scheduled for today. Denies any shortness of breath. No nausea or vomiting. No abdominal pain. - Exam Vitals: Temp Pulse Resp BP Pulse Ox 97.8 F 75 16 96/61 94 11/16/18 12:09 11/16/18 12:09 11/16/18 12:09 11/16/18 12:09 11/16/18 12:09 Exam: General: Patient is alert, no acute distress, oriented x 3 ENT: Mucous membranes moist Respiratory: Bilateral end expiratory wheezing Cardiovascular: Regular rate and rhythm. s1 and s2 normal No clicks, rubs, gallops, or murmurs. No pedal edema Abdomen: Abdomen is soft, nontender. Bowel sounds are present Musculoskeletal: Spontaneously moving all extremities Skin: warm, dry, intact. Neuro: Alert oriented x 3 normal cranial nerves, no focal deficits - Assessment and Plan (1) Acute myocardial infarction Current Visit: Yes Status: Acute Assessment and Plan: Patient on IV heparin. Left heart catheterization scheduled for today. Continue aspirin, Plavix. (2) Severe aortic stenosis Current Visit: Yes Status: Acute Assessment and Plan: Cardiology following. Avoid any preloaded using medications. Ischemic workup plan for now. Eventually patient will need valve replacement. (3) COPD (chronic obstructive pulmonary disease) Current Visit: Yes Status: Chronic Assessment and Plan: Continue bronchodilators as needed. Patient is not in acute exacerbation. (4) Altered level of consciousness Current Visit: Yes Status: Resolved (5) Smoker Current Visit: No Status: Chronic (6) Congestive heart failure Current Visit: Yes Status: Acute Assessment and Plan: Improved with Lasix. Currently on oral Lasix. (7) DVT prophylaxis Current Visit: Yes Status: Acute Assessment and Plan: On IV heparin - Time Spent with Patient Total time spent is greater than 50% in coordination of care (as documented) at patient's floor/unit and/or counseling patient: Internal Medicine: Result - Labs CBC & Chem 7: 11/15/18 06:08 11/15/18 06:08 - ABG Interpretation ABG results: PT/INR, D-dimer PT 11.0 Seconds (9.4-12.1) 11/13/18 15:51 Consult Discharge Plan - Plan Referrals: NONE,PCP [Primary Care Provider] - (1) Acute myocardial infarction Qualifiers: Myocardial infarction type: non-ST elevation myocardial infarction Qualified Code(s): I21.4 - Non-ST elevation (NSTEMI) myocardial infarction (3) COPD (chronic obstructive pulmonary disease) Qualifiers: COPD type: unspecified COPD Qualified Code(s): J44.9 - Chronic obstructive pulmonary disease, unspecified (6) Congestive heart failure Qualifiers: Heart failure type: combined systolic and diastolic Heart failure chronicity: chronic Qualified Code(s): I50.42 - Chronic combined systolic (congestive) and diastolic (congestive) heart failure
--- NOTE | 2018-11-16 13:36 | Pre-Sedation Evaluation ---
Pre-sedation evaluation - Pre-sedation checklist Date of procedure: 11/16/18 Procedure: [facility] Recent Vitals: Last Vital Signs Temp 97.8 F 11/16/18 12:09 Pulse 75 11/16/18 12:09 Resp 16 11/16/18 12:09 BP 96/61 11/16/18 12:09 Pulse Ox 94 11/16/18 12:09 H&P (including ROS) documented in medical record: Yes Previous reaction to sedatives/anesthetics: No Dietary Status: NPO after Midnight Dentition: No loose teeth or bridges ASA Classification *see protocol: CLASS II-Mild systemic disease Cardiac Registry (Cardio Only) - Functional Capacity Functional Capacity: >=4 METS with symptoms - Clincal Frailty Scale Clinical Frailty Scale: Managing Well
[2018-11-16] MEDS ORDERED: *HR* FentaNYL (PF) 100 MCG/2 ML VIAL ONE (13:41)
[2018-11-16] MEDS ORDERED: *HR* Midazolam HCl 2 MG/2 ML VIAL ONE (13:41)
--- NOTE | 2018-11-16 14:22 | Invasive Diagnostic Lab Proc ---
Name: Guillermo Swain Date of Study: 11/16/2018 Date: 1950 Ht: 68.9in Medical Record#: [id number] Age: 67 Wt: 98.11lb Gender: Male BSA: 1.52 Order #: [id number] BMI: 14.53 Physicians Procedure Physician: Aaron Castro MD Referring MD: Referring MD: Staff Name Position Time In OrtizFaith RN Monitor 01:22 PM Carmen Banda RT (R) Scrub 01:22 PM Padmini Haq RN Restaurant Floor Manager 01:22 PM Indications Indication Non-Stemi Procedures Performed Procedure CORONARY ARTERY ANGIO S&I Pre-Procedure Checklist Informed consent is complete signed and on chart. H&P is on chart. ID band is on and ID verified with patient. Patient NPO for procedure The procedure was described for the patient and questions were answered. ECG is on chart. Plan of Care Patient will tolerate the procedure without complications. Adequate level of comfort will be maintained. Hemodynamics will remain stable Patient will recover from procedure without complications. Respiratory function will be maintained. Cardiac rhythm will remain stable. Patient temperature will be maintained. Patient and/or family have verbalized understanding of the procedure. Patient Education Chief Complaint/Reason for Test: Cardiac Cath Developmental Category: Geriatric (65+ years) Developmentally Appropriate for Age: Yes Learning Barriers: None Education Needs: Procedure Education Method: Verbal Information Taught: Cardiac Cath Educational Evaluation: Able to repeat information Intravenous Access Time IV Size Location DC'd Fluid/Drip Rate Units RN 20g 1 07/31" Patent On Arrival 0.9NaCl ml/hr Allergies No Known Allergies Vital Signs Time BP (mmHg) HR (bpm) O2 Sat. RR (bpm) LOC 01:39 PM / % 4 = Oriented but drowsy 01:39 PM / % 5 = Fully awake and oriented or at pre-proc level 01:28 PM 139 / 85 83 % 19 01:33 PM 129 / 81 81 96 % 20 01:38 PM 123 / 82 83 95 % 20 01:43 PM 117 / 79 82 95 % 19 01:48 PM 112 / 78 82 94 % 19 01:53 PM 120 / 80 81 94 % 17 01:58 PM 112 / 81 85 94 % 18 Procedural Medications Time Medication Dose Units Method Given By 01:39 PM Oxygen 2 L/min nasal cannula Padmini Haq RN 01:41 PM Lidocaine 2% 10 ml Subcutaneous Aaron Castro MD 01:42 PM Versed 0.5 mg Intravenous Padmini Haq RN 01:42 PM Fentanyl 25 mcg Intravenous Padmini Haq RN 01:45 PM Versed 0.5 mg Intravenous Padmini Haq RN 01:45 PM Fentanyl 25 mcg Intravenous Padmini Haq RN ASA Classification: CLASS II- Mild systemic disease (i.e. well-controlled diabetes, hypertension, asthma, cigarette smoking) Maricruz Score Preprocedure Postprocedure Activity 2- Moves 4 extremities sustained head lift Activity 2- Moves 4 extremities sustained head lift Circulation 2- SBP +/= 20 points of pre-anesthetic level Circulation 2- SBP +/= 20 points of pre-anesthetic level Consciousness 2- Awake and alert oriented x 3 Consciousness 2- Awake and alert oriented x 3 O2 Saturation 2- Able to maintain O2 satruation of 92% on room air O2 Saturation 2- Able to maintain O2 satruation of 92% on room air Respiratory 2- Able to deep breathe and cough well Respiratory 2- Able to deep breathe and cough well Total Score 10 Total Score 10 Contrast Agent: Isovue Diagnostic Contrast: 30 ml Total Contrast: 30 ml Fluoro Dose: 240 mGy Procedure Log Time Note Enter By : PM Pt arrived to garage laborer 1 at 13:22 : PM Faith Alcantar RN Position: Monitor Time in: 13:: PM Carmen Banda RT (R) Position: Scrub Time in: : PM Padmini Haq RN Position: Restaurant Floor Manager Time in: 13:22 [facility]: PM Patient charges- Angio tray pack, Navilyst 3mm J, Pulse Oximetry and ACIST tubing and transducer : PM Case Delayed No PM Nanda completed : PM Sign in performed according to hospital policy. Informed consent was obtained. PM Procedure start 13:23 oumm: PM CathStat 01:27 PM Vitals capture started with the following parameters, Patient=Adult, Interval=5 min, Initial Wzgcpztf=652 mmHg, Deflation Rate=3 mmHg, Cuff placed on Right Arm 01:28 PM HR=83 bpm, NWOH=097/85 mmhg, Resp=19 B/min 01:32 PM Pressure channel 2 zeroed. 01:33 PM HR=81 bpm, NOTH=973/81 mmhg, SpO2=96.0 %, Resp=20 B/min 01:38 PM HR=83 bpm, GXMO=742/82 mmhg, SpO2=95.0 %, Resp=20 B/min 01:38 PM ASA Class CLASS II- Mild systemic disease (i.e. well-controlled diabetes, hypertension, asthma, cigarette smoking) tsoummers 01:39 PM Hair removed from procedure site in procedure lab using clippers. Bilateral groin prepped with Chloraprep by Padmini Haq RN, then patient was draped. Skin intact. tsoummers :39 PM Time: 13:39 Patient comfortable and pain free: Yes tsoummers :39 PM Time: 13:39LOC: 5 = Fully awake and oriented or at pre-proc level tsoummers :39 PM Time: 13:39 Oxygen on at 2 L/min per nasal cannula by Padmini Haq RN [email or web address] 01:40 PM Time out was performed according to hospital policy. Conscious sedation and anesthesia was achieved (see medication log with in this report above) tsoummers 01:41 PM Time: 13:41 10 ml Lidocaine 2% to right groin Subcutaneous Given by Aaron Castro MD [email or web address] 01:42 PM Micro-Introducer Kit utilized for sheath placement tsoumm:42 PM Access obtained by percutaneous puncture. 6Fr 10cm Terumo [place] sheath placed in right Femoral artery. [id number] tsoummers 01:42 PM Time: 13:42 Versed 0.5 mg Intravenous Given by Padmini Haq RN gwen :42 PM Time: 13:42 Fentanyl 25 mcg Intravenous Given by Padmini Haq RN gwen 01:43 PM HR=82 bpm, FMOO=639/79 mmhg, SpO2=95.0 %, Resp=19 B/min 01:44 PM 0.035 145cm Navilyst 3mmJ wire [id number] oummers 01:44 PM 5Fr FR 4 catheter inserted over the wire [facility] mm 01:44 PM wire removed oumm 01:45 PM Time: 13:45 Versed 0.5 mg Intravenous Given by Padmini Haq RN chetanjacob 01:45 PM Time: 13:45 Fentanyl 25 mcg Intravenous Given by Padmini Haq RN gwen 01:45 PM RCA angiography performed in multiple views. tsoumm 01:46 PM Recorded Pressure: Ao, HR=84, Condition=Condition 1 (Aorta) Ao 79/66/73 01:47 PM Catheter removed oumm 01:47 PM 5Fr FL 4 catheter inserted over the wire [facility] tsoumm 01:47 PM Lesion found in Mid RCA. Pre Stenosis: 50 Pre ISAÍAS Flow: 3: Complete and Brisk Flow/Perfusion oumm 01:47 PM Right Coronary, Right Posterior Descending Arteries with Right Posterolateral and Acute Marginal branches with 50 % stenosis. If graft is supplying this area, 0 % stenosis tsoumm 01:47 PM LCA angiography performed in multiple views. mm 01:47 PM Recorded Pressure: Ao, HR=84, Condition=Condition 1 (Aorta) Ao 96/65/79 01:48 PM HR=82 bpm, KOAA=926/78 mmhg, SpO2=94.0 %, Resp=19 B/min 01:50 PM Catheter removed mm 01:52 PM Procedure completed at 13:52 11/16/2018mmjacob 01:52 PM Did you address ISAÍAS flow and Dominance? Yes mmjacob 01:53 PM HR=81 bpm, UHVM=056/80 mmhg, SpO2=94.0 %, Resp=17 B/min 01:54 PM Sign out completed: Radiation Dose 239.89 mGy, 239.89 Gy/cm2 Fluoro Time: 2.4 Isovue 370 - 200ml contrast 30 ml given by Aaron Castro MD. Complications: None. The patient was discharged out of the cath lab tech in stable condition. Sedation minutes 12. Cardiac Rehab Consult needed: No. Confirmed administered medications: Yes [email or web address] 01:55 PM Isovue 370 - 200ml,1 Bottle(s) used. [email or web address] 01:56 PM Arterial sheath pulled, Mynx closure device used and was Successful [id number] S/N. tsoummers 01:56 PM Estimated Blood Loss: minimal tsoummers 01:56 PM Post ECG NSR tsoummers 01:56 PM Post Blood Pressure 120/80 tsoummers 01:57 PM Information taught Cardiac Cath and Mynx tsoumm 01:57 PM Education needs Procedure, Plan of Care, Diet, and Disease Process tsoummers 01:57 PM Learning barriers :None tsoummers 01:57 PM Education Methods Verbal tsoumm 01:57 PM Education evaluation Able to repeat information oumm 01:57 PM Site status No bleeding/hematoma - Rt Groin as reported by Carmen Banda RT (R) at 13:57 tsoummers 01:57 PM Opsite applied tsoummers 01:57 PM Plavix, Effient or Brilinta given No tsoummers 01:57 PM Delay to floor No tsoummers 01:57 PM no family present tsoummers 01:58 PM Lesion found in Mid LAD. Pre Stenosis: 100 Pre ISÍAAS Flow: 0: No Flow/No perfusion tsoummers 01:58 PM HR=85 bpm, DXBL=821/81 mmhg, SpO2=94.0 %, Resp=18 B/min 01:58 PM Lesion found in 1st Diagonal. Pre Stenosis: 60 Pre ISAÍAS Flow: tsoummers 01:58 PM Lesion found in Proximal Circumflex. Pre Stenosis: 50 Pre ISAÍAS Flow: tsoummers 02:02 PM Patient out of room: 14:01 tsoummers 02:05 PM Report given to Anna FORREST Pt taken to 2A Room #[facility]. 14:[facility] Complications Complication None Hemodynamics Pressures Site Systolic/A Wave Diastolic/V Wave Mean AO 79 66 73 AO 96 65 79 Post Procedure Information Blood Pressure: 120/80 mmHg Rhythm: NSR Post procedural instructions were given Closure Device Time Device Success/Fail 11/16/2018 1:57:00 PM MynxGrip Successful Site Checks Time Location Status Staff Sheath In? Note 01:57 PM Rt Groin No bleeding/hematoma Carmen Banda RT (R) Pulses Time Site Pre-Procedure Post-Procedure Note Bilateral DP & PT 1+ Bilateral radial 2+ Updated by Faith Alcantar RN on 11/16/2018 2:12:48 PM electronically signed on 11/16/2018 2:13:19 PM with status of Final
--- NOTE | 2018-11-16 15:07 | Event Note ---
Date of Encounter: 11/16/18 Time of Encounter: 15:05 - Cardiology Event Note Per Dr. Castro, CT c/s pending for CAD and Severe .
--- NOTE | 2018-11-16 16:37 | Cardiothoracic Consult Note ---
Date of Encounter: 11/16/18 Time of Encounter: 15:53 Assessment and Plan (1) NSTEMI (non-ST elevated myocardial infarction) Current Visit: Yes Status: Acute The patient is a 67-year-old man with no previous medical history who was transferred to [facility] from the [facility] with a diagnosis of an acute NSTEMI. A transthoracic echocardiogram revealed severe aortic stenosis with a mean gradient 34 mmHg the calculated aortic valve area less than 1cm. Cardiac catheterization reveals severe single-vessel CAD, including a completely occluded mid LAD which fills distally via left to left collaterals. He has been recommended for combined CABG and aortic valve replacement. The STS risk calculator reveals an operative mortality risk 1.70%, renal failure risk 2.13%, permanent stroke risk 1.35%, deep sternal wound i nfection 0.35%, and reoperation risk 3.76%. Although his operative mortality risk is low for this combined procedure, after examining the patient I do not believe that he would be a good operative candidate given his minimal activity. He would be a difficult rehabilitation patient. After discussing my concerns with the wire setter, it was decided that the patient should undergo LAD PCI followed by possible TAVR in the future. The assessment and plan as outlined above was discussed with the patient and/or family members who expressed understanding and agreement. All questions were answered. - History of Present Illness Consult date: 11/16/18 Requesting physician: Aaron Castro Consult reason: CABG evaluation Chief complaint: CAD/aortic stenosis History of present illness: Mr. Swain is a 67 year old man with no past medical history who was t r[facility]ferred to [facility] from the [facility] with complaints of nonradiating substernal chest pain. He was found to have elevated troponin I levels at the [facility] consistent with an acute NSTEMI. He was treated medically and transferred for further care. He underwent a transthoracic echocardiogram which revealed an LVEF 55% with normal left ventricular chamber size and function. Severe aortic stenosis was noted with a mean gradient 54 mmHg and a calculated aortic valve area less than 1 cm. Cardiac catheterization performed today revealed severe single-vessel CAD. In particular, the patient has a platelet occluded mid LAD which fills distally via left to left collaterals, a 60% proximal D1 lesion, a 50% proximal LCx lesion, a 50% mid RCA lesion. He has been recommended for combined CABG and AVR. Past Med Surg Social Fam HX - Past Medical History Medical history: no medical history Psychiatric history: depression, other (Flat affect and difficulty with eye contact) - Past Surgical History Surgical History: no surgical history - Social History Smoking Status: Current some day smoker Alcohol use: none Drug use: none Occupational status: retired Current living situation: Home - Independent Activity Level: Independent ambulation Recent Out of Country Travel Within the Last 8 Weeks: No Exposure or Possible Exposure to Illness During Travel: No Medications and Allergies No Known Home Drugs 11/13/18 [History] Allergy/AdvReac Type Severity Reaction Status Date / Time No Known Allergies Allergy Verified 04/26/18 14:16 All Systems Review: The remainder of the systems were reviewed and are negative Physical Examination Vital Signs, Last 4 Hours Temp Pulse Resp BP Pulse Ox 11/16/18 15:57 97.6 F 89 16 104/61 96 11/16/18 15:30 97.8 F General: Conversant (Conversant, but difficult to obtain an accurate medical history), No Apparent Distress HEENT: Atraumatic, Normocephaly, Trachea midline Neck: No JVD, Normal carotid pulses Cardiac: Reg Rate and Rhythm, Normal S1 and S2, Other (3/6 systolic ejection murmur best heard in the right lateral sternal border) Lungs: Normal Breath Sounds, No Wheeze, Rales, Rhonchi Neuro: Alert and responsive, No focal deficits noted Vascular: Normal capillary refill Abdomen: Soft, Non-tender Skin: No rashes noted on visualized skin Musculoskeletal: No Chest Wall Tenderness Extremities: No Clubbing, No Cyanosis, No Edema Results 11/15/18 06:08 11/15/18 06:08 - Imaging Chest Xray: image reviewed (Normal cardiac size. No active pulmonary disease.) Consult Discharge Plan - Plan Referrals: NONE,PCP [Primary Care Provider] -
--- NOTE | 2018-11-16 16:46 | Electrocardiograph Report ---
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
[2018-11-17 08:07] LABS: BUN/Creatinine Ratio 23 (6-26); Blood Urea Nitrogen 20 mg/dL (8-23); Calcium 9.1 mg/dL (8.6-10.3); Carbon Dioxide 27 mEq/L (23-29); Chloride 101 mEq/L (98-107); Glucose 116 mg/dL (70-105); Osmolality,Calculated 286 (280-300); Potassium 4.3 mEq/L (3.5-5.1); Sodium 136 mEq/L (136-145); eGFR For Non-African Americans > 60 (> 60)
--- NOTE | 2018-11-17 08:11 | Event Note ---
Date of Encounter: 11/17/18 Time of Encounter: 08:10 - Cardiology Event Note Laboratory Tests 11/17/18 07:31 Creatinine 0.87 Est GFR (Non-Af Amer) > 60 Cardiothoracic surgery note reviewed. Right groin site dry and intact, no hematoma, no ecchymosis, no bleeding, right PT and DP pulses 1+ palpable. Plan for catheterization with PCI attempt today. Patient verbalized understanding and agree to plan. All questions answered. The conditions for consideration of TAVR. Patient wheezing today, will give DuoNeb as needed.
[2018-11-17] MEDS: Furosemide 40 MG TABLET PO SCH (09:30)
[2018-11-17] MEDS: Aspirin Enteric Coated 81 MG Tablet PO SCH (09:30)
[2018-11-17] MEDS: traMADol 50 MG TABLET PO PRN (09:38)
[2018-11-17] MEDS: Ipratropium/Albuterol Neb 3 ML IH PRN (10:06)
--- NOTE | 2018-11-17 14:13 | Discharge Summary ---
- NOTES TO OUTPATIENT PROVIDER Notes to Outpatient Provider: Patient with a history of coronary artery disease who was hospitalized here for non-ST elevation ME and increased confusion. He was started on treatment for this with IV heparin. His troponins peaked at 0.22. He underwent left heart catheterization which showed severe 1 vessel disease involving and points stenosis in the mid LAD. He also had 60% stenosis in the first diagonal and 50% stenosis in the proximal circumflex and mid RCA. He also has severe aortic stenosis. With mean gradient of 54 mmHg and calculated aortic valve area less than 1 cm. He was evaluated by cardiothoracic surgery for possible CABG. However they believed that he was not a good operative candidate and recommended high risk PCI followed by TAVR. Interventional cardiology again reviewed his films and recommended transfer to tertiary care Center as he would need care beyond our scope here. As such I have called [facility] and patient will be transferred there once he is accepted. Orders not resulted at time of discharge: Pending orders 11/17/18 08:10 CL Cardiac Catheterization [CL] Routine Date of Encounter: 11/17/18 Time of Encounter: 14:05 - Discharge Diagnosis (1) Acute myocardial infarction Priority: Primary Status: Acute Qualifiers: Myocardial infarction type: non-ST elevation myocardial infarction Qualified Code(s): I21.4 - Non-ST elevation (NSTEMI) myocardial infarction (2) Severe aortic stenosis Priority: Secondary Status: Acute (3) COPD (chronic obstructive pulmonary disease) Priority: Secondary Status: Chronic Qualifiers: COPD type: unspecified COPD Qualified Code(s): J44.9 - Chronic obstructive pulmonary disease, unspecified (4) Altered level of consciousness Priority: Secondary Status: Resolved (5) Smoker Priority: Secondary Status: Chronic (6) Congestive heart failure Priority: Secondary Status: Acute Qualifiers: Heart failure type: combined systolic and diastolic Heart failure chronicity: chronic Qualified Code(s): I50.42 - Chronic combined systolic (congestive) and diastolic (congestive) heart failure (7) DVT prophylaxis Priority: Secondary Status: Acute Hospital course: Mr. Swain is a 67 year old male Patient with a history of coronary artery disease who was hospitalized here for non-ST elevation ME and increased confusion. He was started on treatment for this with IV heparin. His troponins peaked at 0.22. He underwent left heart catheterization which showed severe 1 vessel disease involving and points stenosis in the mid LAD. He also had 60% stenosis in the first diagonal and 50% stenosis in the proximal circumflex and mid RCA. He also has severe aortic stenosis. With mean gradient of 54 mmHg and calculated aortic valve area less than 1 cm. He was evaluated by cardiothoracic surgery for possible CABG. However they believed that he was not a good operative candidate and recommended high risk PCI followed by TAVR. Interventional cardiology again reviewed his films and recommended transfer to tertiary care Center as he would need care beyond our scope here. As such I have called [facility] and patient will be transferred there once he is accepted. Discharge discussed with: patient, family - Time Spent with Patient Total time spent providing and/or coordinating discharge services: Time spent: Greater than 30 minutes (45 min) - Discharge Medications Prescriptions: Jeffrey Clopidogrel [Plavix] 75 mg PO DAILY tablet Atorvastatin [Lipitor] 80 mg PO HS tablet Aspirin Enteric Coated [Aspirin EC] 81 mg PO DAILY tablet. Furosemide [Lasix] 40 mg PO DAILY tablet Home Medications: Aspirin Enteric Coated [Aspirin EC] 81 mg PO DAILY tablet. 11/17/18 [Rx] Atorvastatin [Lipitor] 80 mg PO HS tablet 11/17/18 [Rx] Clopidogrel [Plavix] 75 mg PO DAILY tablet 11/17/18 [Rx] Furosemide [Lasix] 40 mg PO DAILY tablet 11/17/18 [Rx] Allergies/Adverse Reactions: Allergy/AdvReac Type Severity Reaction Status Date / Time No Known Allergies Allergy Verified 04/26/18 14:16 Date of admission: 11/14/18 11:49 Primary care physician: PCP NONE Consults: 11/13/18 13:40 Consult to Occupational Therapy [CONS] Routine Comment: Evaluate, develop and implement POC Reason for Consult: dc planning Does patient have active BEDREST order?: No Is patient medically & hemodynamically stable?: Yes Patient assessed for mobility or mobilized this visit?: Yes Consult to Physical Therapy [CONS] Routine Comment: Evaluate, develop and implement POC Reason for Consult: dc planning Does patient have active BEDREST order?: No Is patient medically & hemodynamically stable?: Yes Patient assessed for mobility or mobilized this visit?: Yes Consult to Territory Sales Consultant [CONS] Routine Reason for SW Consult: dc planning 11/13/18 13:44 Consult to Cardiology [CONS] Routine Comment: Consulting Provider: Cardiology Yudelka Reason for Consult: abnormal EKG Call Completed: Yes 11/14/18 09:57 Consult to Cardiac Rehabilitation-Phase1 [CONS] Routine Comment: Reason for Consult: nstemi, severe Call Completed: No 11/16/18 18:53 Consult to Cardiothoracic Surgery [CONS] Routine Consulting Provider: Cardiothoracic Surgery [place] Reason for Consult: AVR, CABG Call Completed: Yes Discharging clinician: Kristan Garces Anticipated date of discharge: 11/17/18 - Constitutional Vitals: Temp Pulse Resp BP Pulse Ox 97.7 F 78 16 109/64 94 11/17/18 11:20 11/17/18 11:20 11/17/18 11:20 11/17/18 11:20 11/17/18 11:20 General appearance: Present: cooperative, A&O X 2, pleasant, no acute distress, answers questions appropriately Exam: . - Respiratory Respiratory exam: Present: CTAB. Absent: accessory muscle use, rales, rhonchi, wheezes - Cardiovascular Cardiovascular exam: Present: RRR, +S1, +S2. Absent: diastolic murmur, gallop, rubs, systolic murmur - GI/Abdominal GI/Abdominal exam: Present: normal bowel sounds, soft, no peritoneal signs. Absent: distended, tenderness - Psychiatric Psychiatric exam: Present: flat affect - Patient Status Disposition: Transfer Other Condition: Fair Functional capacity at discharge: independent ambulation Overall status at discharge: patient is progressing back to baseline - Discharge Instructions Instructions: Myocardial Infarction (DC), Heart Failure (DC) Follow Up With: NONE,PCP [Primary Care Provider] - - Diet and Activity Activity: increase activity as tolerated Diet: low fat, low cholesterol, low salt diet
[2018-11-17 16:06] VITALS: BP 115/76
== END 2018-11-17 18:47 | disposition other institution (70) | DRG 281 ==
LOC: 2ANU 11:20 → EMEROOARM 11:20 → 2ANU 14:28
PROVIDERS: ADMIT Internal Medicine; ATTEND Internal Medicine

== ENCOUNTER 2019-04-03 22:09 | Observation (INO) ==
[2019-04-03] MEDS ORDERED: Aspirin 81 MG TAB.CHEW PO ONE (22:38)
[2019-04-03 22:58] LABS: Basophils % 0.3 %; Eosinophils # 0.3 K/mcL (0.0-0.6); Eosinophils % 4.1 %; Hematocrit 40.2 % (37.5-50.1); Hemoglobin 13.5 g/dL (12.9-16.9); Immature Granulocytes % 0.3 % (0-4); Lymphocytes # 1.6 K/mcL (0.6-4.6); Lymphocytes % 26.9 %; Mean Corpuscular HGB Conc 33.6 g/dL (31.6-35.5); Mean Corpuscular Hemoglobin 30.1 pg (28.0-33.3); Mean Corpuscular Volume 89.7 fL (83.0-100.0); Monocytes # 0.7 K/mcL (0.0-1.3); Monocytes % 11.4 %; Neutrophils # 3.4 K/mcL (1.6-8.9); Platelet Count 198 K/mcL (140-400); Red Blood Count 4.48 M/mcL (4.19-5.50); Red Cell Distribution Width 13.5 % (11.5-14.5); White Blood Count 6.1 K/mcL (4.3-11.1)
[2019-04-03] MEDS: Nitroglycerin 0.4 MG TAB.SUBL SL PRN ×2 (23:07→23:17)
[2019-04-03 23:16] LABS: BUN/Creatinine Ratio 16 (6-26); Blood Urea Nitrogen 15 mg/dL (8-23); Calcium 9.2 mg/dL (8.6-10.3); Carbon Dioxide 24 mEq/L (23-29); Chloride 105 mEq/L (98-107); Glucose 108 mg/dL (70-105); Osmolality,Calculated 287 (280-300); Potassium 3.8 mEq/L (3.5-5.1); Sodium 138 mEq/L (136-145); eGFR For African Americans > 60 (> 60); eGFR For Non-African Americans > 60 (> 60)
[2019-04-03 23:17] LABS: Troponin I 0.03 ng/mL (< 0.04)
[2019-04-03 23:19] LABS: Prothrombin Time 10.8 Seconds (9.4-12.1)
--- NOTE | 2019-04-03 23:21 | Emergency Department Note ---
Disposition Clinical Impression: Chest pain Qualifiers: Chest pain type: unspecified Qualified Code(s): R07.9 - Chest pain, unspecified Disposition: Admitted As Inpatient Condition: Fair Forms: ED Satisfaction Letter Time of Disposition: 01:07 Chest Pain HPI - General Chief Complaint: ED Chest Pain Stated Complaint: CP/LEFT SIDE NUMBNESS Time Seen by Provider: 04/03/19 22:19 Source: patient, family Mode of arrival: ambulatory Limitations: no limitations Vital Signs Reviewed: Yes Nursing Notes Reviewed: Yes - History of Present Illness HPI Narrative: 68 -year-old male presents to the emergency department complaining of chest pain. Said he also has left arm numbness. Said this has been going on for felecia roximately one month but worsened today. Sclerae the pain is 8 out of 10 dull throbbing ache pressure in the center of his chest. Does have history of ACS with multiple stent places never had a CABG. Also is scheduled hopefully to have TAVR here soon. Does have nitroglycerin has not used any. Family said they notice was pale and felt nauseous that is what caused them to bring him in compared this pain is been going on for a month. There is no shortness of breath to the chest pain is worse whenever he exerts himself. They should not has no other complaints at this time. Severity scale (1-10): 9 - Related Data Previous Rx's Medication Instructions Recorded Aspirin Enteric Coated [Aspirin EC] 81 mg PO DAILY tablet. 11/17/18 Atorvastatin [Lipitor] 80 mg PO HS tablet 11/17/18 Clopidogrel [Plavix] 75 mg PO DAILY tablet 11/17/18 Furosemide [Lasix] 40 mg PO DAILY tablet 11/17/18 Allergies Allergy/AdvReac Type Severity Reaction Status Date / Time No Known Allergies Allergy Verified 04/03/19 22:11 All systems ED: reviewed and negative except as stated. Review of Systems: As Per HPI Chest Pain PMH - Past Medical History Medical history: Reports: CHF, COPD, myocardial infarction Surgical history: Reports: no surgical history Psychiatric history: Reports: depression, other - Social History Smoking Status: Current some day smoker Alcohol use: Reports: none Drug use: Reports: none Physical Exam - General Limitations: no limitations General appearance: alert - Head Head exam: atraumatic, normocephalic, normal inspection - Eye Eye exam: Present: normal appearance, PERRL, EOMI - ENT ENT exam: normal exam, normal oropharynx, mucous membranes moist - Neck Neck exam: Present: normal inspection, full ROM, trachea midline - Chest Chest inspection: Present: normal inspection, symmetric chest wall rise - Respiratory Respiratory exam: Present: normal lung sounds bilaterally, wheezes. Absent: respiratory distress - Cardiovascular Cardiovascular exam: Present: regular rate, normal rhythm, normal heart sounds - Abdominal Exam Abdominal exam: Present: soft, Non-Tender. Absent: tenderness, distention, g uarding, rebound, rigidity - Extremities Exam Extremities exam: Present: normal inspection, full ROM. Absent: tenderness, pedal edema - Back Exam Back exam: Present: normal inspection, full ROM. Absent: tenderness - Neurological Exam Neurological exam: Present: alert, oriented X3 - Skin Skin exam: Present: warm, dry, intact, normal color Course Course Narrative: We will do chest pain workup includes CBC troponin and coags chest x-ray EKG per we will give him nitroglycerin and aspirin. Patient most likely will be admitted due to elevated heart score. Vital Signs Temperature 97.7 F 04/03/19 22:11 Pulse Rate 87 04/03/19 22:11 Respiratory Rate 20 04/03/19 22:11 Blood Pressure 149/81 04/03/19 22:11 O2 Sat by Pulse Oximetry 97 04/03/19 22:11 Temperature 97.7 F 04/03/19 22:22 Pulse Rate 88 04/03/19 23:08 Respiratory Rate 22 04/03/19 23:08 Blood Pressure 118/75 04/03/19 23:08 O2 Sat by Pulse Oximetry 96 04/03/19 23:08 Oxygen Delivery Oxygen Delivery Room Air Chest Pain - [facility] Narrative Medical decision making narrative: Patient has elevated heart score is 6. Does have chest pain. Was given nitroglycerin and aspirin. Due to the patient's cardiac history he needs to be admitted for further cardiac workup. Patient is okay with this plan. I spoke with Dr. Castro who agreed to admit the patient to their service. Patient is admitted in stable condition. EKG had no acute changes chest x-ray also was normal Chest X-Ray 04/03/19 22:22 IMPRESSION: Stable appearance of the chest without acute cardiopulmonary process identified. D/ / Andrzej Chapman MD / Andrzej Chapman MD Interpreting Provider: Andrzej Chapman MD - Medical Records Medical records reviewed: Yes I reviewed the patient's medical records. - Lab Data Lab results reviewed: Yes I reviewed the patient's lab results. Result diagrams: 04/03/19 22:28 04/03/19 22:28 Lab Results 04/03/19 04/03/19 Range/Units 22:28 22:28 WBC 6.1 (4.3-11.1) K/mcL RBC 4.48 (4.19-5.50) M/mcL Hgb 13.5 (12.9-16.9) g/dL Hct 40.2 (37.5-50.1) % MCV 89.7 (83.0-100.0) fL MCH 30.1 (28.0-33.3) pg MCHC 33.6 (31.6-35.5) g/dL RDW 13.5 (11.5-14.5) % Plt Count 198 (140-400) K/mcL MPV 10.0 (9.4-12.4) fL Immature Gran % 0.3 (0-4) % Seg Neutrophils % 57.0 % Lymphocytes % 26.9 % Monocytes % 11.4 % Eosinophils % 4.1 % Basophils % 0.3 % Neutrophils # 3.4 (1.6-8.9) K/mcL Lymphocytes # 1.6 (0.6-4.6) K/mcL Monocytes # 0.7 (0.0-1.3) K/mcL Eosinophils # 0.3 (0.0-0.6) K/mcL Basophils # 0.0 (0.0-0.2) K/mcL Sodium 138 (136-145) mEq/L Potassium 3.8 (3.5-5.1) mEq/L Chloride 105 (98-107) mEq/L Carbon Dioxide 24 (23-29) mEq/L BUN 15 (8-23) mg/dL Creatinine 0.93 (0.70-1.30) mg/dL Est GFR ( Amer) > 60 (> 60) Est GFR (Non-Af Amer) > 60 (> 60) BUN/Creatinine Ratio 16 (6-26) Glucose 108 H (70-105) mg/dL Calculated Osmolality 287 (280-300) Calcium 9.2 (8.6-10.3) mg/dL Troponin I 0.03 (< 0.04) ng/mL - Radiology Data Radiology results reviewed: Yes I reviewed the patient's radiology results. - EKG Data EKG attestation: Yes I reviewed and interpreted this EKG. EKG results narrative: EKG done at review myself and attending shows sinus rhythm rate of 82, IA 167, QRS 99, QTC 406. There is ST elevations in V2 V3 no reciprocal changes unchanged based on old EKG done in October. No T-wave changes no signs of ischemia. No heart block. LVH with no heart strain. No Sarah. O2 sat/HOCM. No changes based on old EKG done 11/14/18 Heart Score - Score History: Moderately Suspicious EKG: Non Specific repolarisation Disturbance Age: Greater than 65 Risk Factors: Equal/Greater than 3 risk factor or history of atherosclerotic disease Troponin: Less than normal limit HEART Score Total: 6
[2019-04-03 23:22] LABS: Activated Partial Thrombo Time 30.5 Seconds (26.0-36.0)
--- NOTE | 2019-04-04 00:59 | Emergency Department Note ---
Disposition Clinical Impression: Chest pain Qualifiers: Chest pain type: unspecified Qualified Code(s): R07.9 - Chest pain, unspecified Disposition: Admitted As Inpatient Condition: Fair Time of Disposition: 01:07 General Adult HPI - General Chief complaint: ED Chest Pain Stated complaint: CP/LEFT SIDE NUMBNESS Time Seen by Provider: 04/03/19 22:19 Source: patient, family Mode of arrival: ambulatory Limitations: no limitations - History of Present Illness Pain Scale: 9 - Related Data Previous Rx's Medication Instructions Recorded Aspirin Enteric Coated [Aspirin EC] 81 mg PO DAILY tablet.dr 11/17/18 Atorvastatin [Lipitor] 80 mg PO HS tablet 11/17/18 Clopidogrel [Plavix] 75 mg PO DAILY tablet 11/17/18 Heparin 2,700 unit IVP Q6H PRN vial 04/04/19 Heparin 5,400 unit IVP Q6HR PRN vial 04/04/19 Nitroglycerin 0.4 mg SL Q5MIN PRN tab.subl 04/04/19 Allergies Allergy/AdvReac Type Severity Reaction Status Date / Time No Known Allergies Allergy Verified 04/03/19 22:11 Past Medical History - Past Medical History Medical history: Reports: CHF, COPD, myocardial infarction Surgical history: Reports: no surgical history Psychiatric history: Reports: depression, other - Social History Smoking Status: Current some day smoker Alcohol use: Reports: none Drug use: Reports: none Physical Exam - General Limitations: no limitations General appearance: alert Course Vital Signs Temperature 97.7 F 04/03/19 22:11 Pulse Rate 87 04/03/19 22:11 Respiratory Rate 20 04/03/19 22:11 Blood Pressure 149/81 04/03/19 22:11 O2 Sat by Pulse Oximetry 97 04/03/19 22:11 Temperature 97.9 F 04/04/19 07:04 Pulse Rate 76 04/04/19 07:04 Respiratory Rate 16 04/04/19 07:04 Blood Pressure 105/58 04/04/19 07:04 O2 Sat by Pulse Oximetry 97 04/04/19 07:04 Oxygen Delivery Oxygen Delivery Room Air Medical Decision Making - Lab Data Result diagrams: 04/04/19 08:45 04/04/19 04:18 Lab Results 04/03/19 04/03/19 04/03/19 Range/Units 22:28 22:28 22:28 WBC 6.1 (4.3-11.1) K/mcL RBC 4.48 (4.19-5.50) M/mcL Hgb 13.5 (12.9-16.9) g/dL Hct 40.2 (37.5-50.1) % MCV 89.7 (83.0-100.0) fL MCH 30.1 (28.0-33.3) pg MCHC 33.6 (31.6-35.5) g/dL RDW 13.5 (11.5-14.5) % Plt Count 198 (140-400) K/mcL MPV 10.0 (9.4-12.4) fL Immature Gran % 0.3 (0-4) % Seg Neutrophils % 57.0 % Lymphocytes % 26.9 % Monocytes % 11.4 % Eosinophils % 4.1 % Basophils % 0.3 % Neutrophils # 3.4 (1.6-8.9) K/mcL Lymphocytes # 1.6 (0.6-4.6) K/mcL Monocytes # 0.7 (0.0-1.3) K/mcL Eosinophils # 0.3 (0.0-0.6) K/mcL Basophils # 0.0 (0.0-0.2) K/mcL PT 10.8 (9.4-12.1) Seconds INR 1.0 APTT 30.5 (26.0-36.0) Seconds Sodium 138 (136-145) mEq/L Potassium 3.8 (3.5-5.1) mEq/L Chloride 105 (98-107) mEq/L Carbon Dioxide 24 (23-29) mEq/L BUN 15 (8-23) mg/dL Creatinine 0.93 (0.70-1.30) mg/dL Est GFR ( Amer) > 60 (> 60) Est GFR (Non-Af Amer) > 60 (> 60) BUN/Creatinine Ratio 16 (6-26) Glucose 108 H (70-105) mg/dL Calculated Osmolality 287 (280-300) Calcium 9.2 (8.6-10.3) mg/dL Troponin I 0.03 (< 0.04) ng/mL Attestation Statement - Attestation Attestation: I examined this patient and my medical decision-making was reviewed with the Resident Physician. I agree with the documented findings, disposition and treatment plan as described except to the extent set forth below. Patient 68-year-old gentleman who presents the emergency department with chief complaint of chest pain patient states his been having intermittent pain of the last several days located on the left side of his chest. Physical exam patient is awake alert no acute distress Medical decision management EKG shows no evidence of acute ischemic changes initial troponin was negative case was discussed with the hospitalist the patient admitted to the hospital for observation. I personally supervised and was present for the granda/critical portions of the following procedures completed by the resident:EKG.
[2019-04-04] MEDS ORDERED: Naloxone 0.4 MG/ML INJ IVP PRN (02:10)
[2019-04-04] MEDS ORDERED: Nitroglycerin 1 INCH/GM PACKET TP ONE (02:26)
--- NOTE | 2019-04-04 04:08 | Internal Med History&Physical ---
Date of Encounter: 04/04/19 Time of Encounter: 01:30 Internal Medicine - H&P: HPI Chief complaint: Chest Pain Admitted From: Home Plans for Post Hospital Care: Home History of present illness: Mr. Swain is a 68 year old male with past medical history significant for CAD with stents, [place], CHF, hyperlipidemia, COPD, anxiety, and tobacco abuse who presents for complaints of intermittent left sided chest pain over past month getting progressively worse. Patient assessment somewhat difficult due to very low speech tone that is sometimes difficult to understand. Per patient and daughter this is his baseline speech for past year suspected to be secondary to some type of abnormality in his throat but did not receive any further evaluation for it. Reports he has been having chest pain worse with exertion and associated with shortness of breath and diaphoresis. States pain also radiates down his left arm and is also sometimes accompanied by numbness. Pain has been getting increasingly worse so his daughter encouraged him to come to ER for further evaluation. Patient was admitted in October 2018 for NSTEMI and had cardiac cath here showing severe one vessel disease in the LAD and severe aortic stenosis and cardiothoracic surgery recommended transfer to tertiary care center as he needed care beyond scope here. Daughter reports he was transferred to [facility] and shortly after being there left AMA and has not followed up with anyone or taken any medications since. ER reported EKG as sinus rhythm with ST elevations in V2 and V3 with no reciprocal changes unchanged based on old EKG from October. ER also obtained chest xray which showed stable appearance of the chest without acute cardiopulmonary process identified. Received aspirin and nitro while in ER which he reports completely resolved his pain. Currently denies any headache, numbness, tingling, chest pain, shortness of breath, cough, abdominal pain, bowel or bladder changes. Denies any follow up or medications since leaving [facility] in October. Past Med Surg Social Fam HX - Past Medical History Medical history: CHF, COPD, coronary artery disease, hyperlipidemia, myocardial infarction Psychiatric history: depression - Past Surgical History Surgical History: appendectomy - Social History Smoking Status: Current some day smoker Alcohol use: none Drug use: none - Family History Father Hx Family Cardiac Disorders: Yes Internal Medicine - H&P: Meds Aspirin Enteric Coated [Aspirin EC] 81 mg PO DAILY tablet. 11/17/18 [Rx] Atorvastatin [Lipitor] 80 mg PO HS tablet 11/17/18 [Rx] Clopidogrel [Plavix] 75 mg PO DAILY tablet 11/17/18 [Rx] Furosemide [Lasix] 40 mg PO DAILY tablet 11/17/18 [Rx] Allergy/AdvReac Type Severity Reaction Status Date / Time No Known Allergies Allergy Verified 04/03/19 22:11 All Systems PM: A 10-system review of systems was performed and is negative for pertinent findings except as documented above in the HPI. - Constitutional Vitals: Temp Pulse Resp BP Pulse Ox 97.6 F 82 14 126/77 95 04/04/19 02:12 04/04/19 02:12 04/04/19 02:12 04/04/19 02:12 04/04/19 02:12 Exam: General: Alert and oriented x3. Flat affect. Speech very soft and difficult to understand at times. Baseline per patient and daughter. Skin:Normal color, no rash, no lesions. HEENT:Pupils equal, round and reactive. Cardiovascular:Chronic murmur noted. No JVD. Pulse regular. Lungs:Normal breath sounds, no wheezes or crackles. Abdomen:Soft, non-tender, no rigidity. Extremities:No deformity, no edema or tenderness, no joint swelling or clubbing. Neurological:Normal cognition and motor skills. Pulses:Carotid and radial pulses normal +2. Rest of the physical exam is non contributory. Internal Med - H&P Results - Labs CBC & Chem 7: 04/04/19 04:18 04/04/19 04:18 Labs: Short CBC 04/03/19 Range/Units 22:28 WBC 6.1 (4.3-11.1) K/mcL Hgb 13.5 (12.9-16.9) g/dL Hct 40.2 (37.5-50.1) % Plt Count 198 (140-400) K/mcL Neutrophils # 3.4 (1.6-8.9) K/mcL BMP 04/03/19 22:28 Sodium 138 Potassium 3.8 Chloride 105 Carbon Dioxide 24 BUN 15 Creatinine 0.93 Glucose 108 H Calcium 9.2 Cardiac Enzymes 04/03/19 Range/Units 22:28 Troponin I 0.03 (< 0.04) ng/mL - Impressions ITS Impressions Chest X-Ray 04/03/19 22:22 IMPRESSION: Stable appearance of the chest without acute cardiopulmonary process identified. D/ / Andrzej Chapman MD / Andrzej Chapman MD Interpreting Provider: Andrzej Chapman MD - Assessment and Plan (1) Chest pain Current Visit: Yes Status: Acute Assessment and plan: Reports intermittent left sided chest pain over past month getting progressively worse. Patient was admitted in October 2018 for NSTEMI and had cardiac cath showing severe one vessel disease in the LAD and severe aortic stenosis and was transferred to [facility] where he left AMA and has not followed up with anyone since. Pain completely resolved with nitro and aspirin received in ER. Initial troponin in ER negative, serial troponins ordered. Continuous cardiac monitoring. Cardiology consult ordered, will need called in a.m. Qualifiers: Chest pain type: unspecified Qualified Code(s): R07.9 - Chest pain, unspecified (2) Coronary artery disease Current Visit: Yes Status: Chronic Assessment and plan: Plan as stated above. Qualifiers: Coronary Disease-Associated Artery/Lesion type: unspecified vessel or lesion type Qualified Code(s): I25.10 - Atherosclerotic heart disease of [place] coronary artery without angina pectoris (3) Aortic stenosis Current Visit: Yes Status: Chronic Assessment and plan: Plan as stated above. Qualifiers: Cardiac valve disease etiology: etiology unspecified Qualified Code(s): I35.0 - Nonrheumatic aortic (valve) stenosis (4) COPD (chronic obstructive pulmonary disease) Current Visit: Yes Status: Chronic Assessment and plan: Not in acute exacerbation. Continue to monitor respiratory status. Qualifiers: COPD type: unspecified COPD Qualified Code(s): J44.9 - Chronic obstructive pulmonary disease, unspecified (5) Tobacco abuse Current Visit: Yes Status: Chronic Assessment and plan: Cessation strongly encouraged. - Time Spent With Patient Total time spent is greater than 50% in coordination of care (as documented) at patient's floor/unit and/or counseling patient:
[2019-04-04 04:49] LABS: Hematocrit 37.5 % (37.5-50.1); Hemoglobin 12.6 g/dL (12.9-16.9); Mean Corpuscular HGB Conc 33.6 g/dL (31.6-35.5); Mean Corpuscular Hemoglobin 30.3 pg (28.0-33.3); Mean Corpuscular Volume 90.1 fL (83.0-100.0); Platelet Count 181 K/mcL (140-400); Red Blood Count 4.16 M/mcL (4.19-5.50); Red Cell Distribution Width 13.4 % (11.5-14.5); White Blood Count 5.8 K/mcL (4.3-11.1)
[2019-04-04 05:02] LABS: BUN/Creatinine Ratio 16 (6-26); Blood Urea Nitrogen 16 mg/dL (8-23); Carbon Dioxide 27 mEq/L (23-29); Chloride 104 mEq/L (98-107); Glucose 110 mg/dL (70-105); Osmolality,Calculated 288 (280-300); Potassium 3.8 mEq/L (3.5-5.1); Sodium 138 mEq/L (136-145); eGFR For African Americans > 60 (> 60); eGFR For Non-African Americans > 60 (> 60)
[2019-04-04] MEDS ORDERED: *HR* Heparin 5,000 UNIT/ML VIAL SQ SCH (06:20)
[2019-04-04 07:08] VITALS: BP 105/58
[2019-04-04] MEDS: Nitroglycerin 0.4 MG TAB.SUBL SL PRN ×3 (08:12→11:59)
[2019-04-04] MEDS ORDERED: *HR* Heparin 5,000 UNIT/ML VIAL IVP ONE ×2 (08:28→08:30)
[2019-04-04] MEDS ORDERED: *HR* Heparin 5,000 UNIT/ML VIAL IVP PRN ×4 (08:28→08:30)
[2019-04-04] MEDS ORDERED: Heparin 25,000 UNIT/250 ML D5W 25,000 UNIT/250 ML IV.SOLN IVC SCH ×2 (08:30)
[2019-04-04] MEDS ORDERED: Aspirin Enteric Coated 81 MG Tablet PO SCH (09:00)
[2019-04-04] MEDS ORDERED: Furosemide 40 MG TABLET PO SCH (09:00)
[2019-04-04 09:27] LABS: Hematocrit 36.7 % (37.5-50.1); Hemoglobin 12.4 g/dL (12.9-16.9); Mean Corpuscular HGB Conc 33.8 g/dL (31.6-35.5); Mean Corpuscular Hemoglobin 30.2 pg (28.0-33.3); Mean Corpuscular Volume 89.5 fL (83.0-100.0); Mean Platelet Volume 10.2 fL (9.4-12.4); Platelet Count 190 K/mcL (140-400); Red Cell Distribution Width 13.4 % (11.5-14.5); White Blood Count 5.4 K/mcL (4.3-11.1)
[2019-04-04 09:36] LABS: Heparin anti-factor XA UFH 0.02 IU/mL (0.30-0.70); Prothrombin Time 11.1 Seconds (9.4-12.1)
--- NOTE | 2019-04-04 09:44 | Discharge Summary ---
- NOTES TO OUTPATIENT PROVIDER Notes to Outpatient Provider: f/u with Cardiology after dc from [facility]. Date of Encounter: 04/04/19 Time of Encounter: 09:42 - Discharge Diagnosis (1) Unstable angina Priority: Primary Status: Acute (2) Chest pain Priority: Primary Status: Acute Qualifiers: Chest pain type: unspecified Qualified Code(s): R07.9 - Chest pain, unspecified (3) Tobacco abuse Priority: Secondary Status: Chronic (4) COPD (chronic obstructive pulmonary disease) Priority: Secondary Status: Chronic Qualifiers: COPD type: unspecified COPD Qualified Code(s): J44.9 - Chronic obstructive pulmonary disease, unspecified (5) Aortic stenosis Priority: Secondary Status: Chronic Qualifiers: Cardiac valve disease etiology: etiology unspecified Qualified Code(s): I35.0 - Nonrheumatic aortic (valve) stenosis (6) Coronary artery disease Priority: Secondary Status: Chronic Qualifiers: Coronary Disease-Associated Artery/Lesion type: unspecified vessel or lesion type Qualified Code(s): I25.10 - Atherosclerotic heart disease of [place] coronary artery without angina pectoris Hospital course: Mr. Swain is a 68 year old male with past medical history significant for CAD with stents, MT, CHF, hyperlipidemia, COPD, anxiety, and tobacco abuse who presents for complaints of intermittent left sided chest pain over past month getting progressively worse. Patient assessment somewhat difficult due to very low speech tone that is sometimes difficult to understand. Per patient and daughter this is his baseline speech for past year suspected to be secondary to some type of abnormality in his throat but did not receive any further evaluation for it. Reports he has been having chest pain worse with exertion and associated with shortness of breath and diaphoresis. States pain also radiates down his left arm and is also sometimes accompanied by numbness. Pain has been getting increasingly worse so his daughter encouraged him to come to ER for further evaluation. Patient was admitted in October 2018 for NSTEMI and had cardiac cath here showing severe one vessel disease in the LAD and severe aortic stenosis and cardiothoracic surgery recommended transfer to tertiary care center as he needed care beyond scope here. Daughter reports he was transferred to [facility] and shortly after being there left AMA and has not followed up with anyone or taken any medications since. ER reported EKG as sinus rhythm with ST elevations in V2 and V3 with no reciprocal changes unchanged based on old EKG from October. ER also obtained chest xray which showed stable appearance of the chest without acute cardiopulmonary process identified. Received aspirin and nitro while in ER which he reports completely resolved his pain. He was admitted for further evaluation. In the morning, troponin was negative 2, however, patient developed another episode of severe chest pain, rated 8-9 out of 10. EKG was performed which showed increased ST elevation from V1 to V5. His chest pain partially relieved by sublingual nitroglycerin. Case was discussed with cardiology, recommended transfer the patient back to [facility] again for further management. Several attempts were made to contact family member, however the listed personnel consultant does not answer phone. Patient's symptoms is consistent with unstable angina, he was started on heparin drip, because of soft blood pressure, we will not start nitro drip at this time, will continue give sublingual nitroglycerin for chest pain. [facility] was contacted, patient will be transferred today. Discharge discussed with: patient Time spent discussing smoking cessation with patient: more than 10 minutes - Time Spent with Patient Total time spent providing and/or coordinating discharge services: Time spent: Greater than 30 minutes - Discharge Medications Prescriptions: New Heparin 2,700 unit IVP Q6H PRN vial PRN Reason: See Comments Heparin 5,400 unit IVP Q6HR PRN vial PRN Reason: See Comments Nitroglycerin 0.4 mg SL Q5MIN PRN tab.subl PRN Reason: Chest Pain Continued Clopidogrel [Plavix] 75 mg PO DAILY tablet Atorvastatin [Lipitor] 80 mg PO HS tablet Aspirin Enteric Coated [Aspirin EC] 81 mg PO DAILY tablet. Discontinued Furosemide [Lasix] 40 mg PO DAILY tablet Home Medications: Aspirin Enteric Coated [Aspirin EC] 81 mg PO DAILY tablet. 11/17/18 [Rx] Atorvastatin [Lipitor] 80 mg PO HS tablet 11/17/18 [Rx] Clopidogrel [Plavix] 75 mg PO DAILY tablet 11/17/18 [Rx] Heparin 2,700 unit IVP Q6H PRN vial 04/04/19 [Rx] Heparin 5,400 unit IVP Q6HR PRN vial 04/04/19 [Rx] Nitroglycerin 0.4 mg SL Q5MIN PRN tab.subl 04/04/19 [Rx] Allergies/Adverse Reactions: Allergy/AdvReac Type Severity Reaction Status Date / Time No Known Allergies Allergy Verified 04/03/19 22:11 Date of admission: 04/04/19 00:59 Primary care physician: PCP TIA Consults: 04/04/19 05:20 Consult to Cardiology [CONS] Routine Comment: Consulting Provider: Cardiology Yudelka Reason for Consult: Presents for chest pain getting progressively worse over past month releived with nitro and aspirin. Was admitted in October 2018 for NSTEMI and had cath with severe one vessel disease in the LAD and severe aortic stenosis and was transferred to [facility] where he left A and has not followed up or taken any medications since. Call Completed: No Anticipated date of discharge: 04/04/19 - Constitutional Vitals: Temp Pulse Resp BP Pulse Ox 97.9 F 76 16 105/58 97 04/04/19 07:04 04/04/19 07:04 04/04/19 07:04 04/04/19 07:04 04/04/19 07:04 General appearance: Present: A&O X 3 Exam: PHYSICAL EXAMINATION: GENERAL APPEARANCE: The patient is alert, oriented and in no acute distress. HEENT: Head is normocephalic. The sinuses are nontender. Pupils are equal and reactive. The nares are patent. Oropharynx clear without lesions. NECK: Supple without lymphadenopathy. HEART: Regular rate and rhythm. LUNGS: No crackles or wheezes are heard. ABDOMEN: Soft, nontender, nondistended with good bowel sounds heard. Inguinal area is normal. EXTREMITIES: Without cyanosis, clubbing or edema. NEUROLOGICAL: Gross nonfocal. SKIN: Warm and dry without any rash. - Patient Status Disposition: Transfer Critical Access Hosp Condition: Fair Functional capacity at discharge: wheelchair bound Overall status at discharge: patient is not back to baseline - Discharge Instructions Follow Up With: [facility]Primary Care Provider[facility] - (Please call Friday to schedule hospital follow up appointment for 7-10 days from date of discharge. ) - Diet and Activity Activity: increase activity as tolerated Diet: low fat, low cholesterol, low salt diet
--- NOTE | 2019-04-04 10:45 | Event Note ---
Date of Encounter: 04/04/19 Time of Encounter: 08:30 - Cardiology Event Note Discussed with primary service. Per review of medical records, patient was recommended for PCI and TAVR at outside facility and was transferred to [place] October 2018. Unfortunately, it appears patient left AMA with no procedures completed. Discussed with primary service with recommendations to transfer to tertiary center to reevaluate for PCI/TAVR. Discussed and reviewed with Dr. Castro whom agrees with plan. Discharge order already completed an transfer pending. Please consult if any further cardiology recommendations needed.
--- NOTE | 2019-04-05 15:32 | Electrocardiograph Report ---
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
--- NOTE | 2019-04-05 15:51 | Electrocardiograph Report ---
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
== END 2019-04-04 12:17 | disposition critical access hospital (66) ==
LOC: 3BNU 22:09 → EMEROOARM 22:09 → 3BNU 04-04 01:51
PROVIDERS: ADMIT Family Medicine; ATTEND Family Medicine

== ENCOUNTER 2020-10-12 20:38 | Observation (INO) ==
[2020-10-12] MEDS ORDERED: 0.9 % Sodium Chloride 1,000 ML IVC ONE (20:59)
[2020-10-12 21:17] LABS: Basophils % 0.5 %; Eosinophils # 0.1 K/mcL (0.0-0.6); Eosinophils % 1.1 %; Hematocrit 38.7 % (37.5-50.1); Hemoglobin 13.2 g/dL (12.9-16.9); Immature Granulocytes % 0.5 % (0-4); Lymphocytes # 0.6 K/mcL (0.6-4.6); Lymphocytes % 13.2 %; Mean Corpuscular HGB Conc 34.1 g/dL (31.6-35.5); Mean Corpuscular Hemoglobin 30.3 pg (28.0-33.3); Mean Platelet Volume 10.2 fL (9.4-12.4); Monocytes # 0.6 K/mcL (0.0-1.3); Monocytes % 14.1 %; Neutrophils # 3.1 K/mcL (1.6-8.9); Platelet Count 149 K/mcL (140-400); Red Blood Count 4.35 M/mcL (4.19-5.50); Red Cell Distribution Width 13.4 % (11.5-14.5); Segmented Neutrophils % 70.6 %; White Blood Count 4.4 K/mcL (4.3-11.1)
[2020-10-12 21:17] LABS: VBG Ionized Calcium 1.15 mmol/L (1.15-1.35)
[2020-10-12 21:25] LABS: INR 1.2; Prothrombin Time 13.3 Seconds (9.4-12.1)
[2020-10-12 22:03] LABS: Alanine Aminotransferase 11 Units/L (7-52); Albumin 4.3 g/dL (3.5-5.7); Albumin/Globulin Ratio 1.7 (1.1-2.2); Alkaline Phosphatase 83 Units/L (34-104); Aspartate Amino Transferase 15 Units/L (13-39); BUN/Creatinine Ratio 15 (6-26); Bilirubin,Total 2.4 mg/dL (0.3-1.0); Blood Urea Nitrogen 17 mg/dL (8-23); Chloride 101 mEq/L (98-107); Globulin 2.6 g/dL (2.4-3.5); Glucose 147 mg/dL (70-105); Osmolality,Calculated 280 (280-300); Phosphorous 2.5 mg/dL (2.7-4.5); Potassium 3.9 mEq/L (3.5-5.1); Sodium 133 mEq/L (136-145); Total Protein 6.9 g/dL (6.4-8.9); eGFR For African Americans > 60 (> 60); eGFR For Non-African Americans > 60 (> 60)
[2020-10-12 22:07] LABS: Troponin I 0.06 ng/mL (< 0.04)
[2020-10-12 22:20] LABS: Carbon Dioxide 23 mEq/L (23-29)
[2020-10-12 22:48] LABS: Bilirubin,Urine Negative (Negative); Blood,Urine Negative (Negative); Clarity,Urine Clear (Clear); Color,Urine Light-Yellow (Yellow); Glucose,Urine (UA) Normal (Normal); Ketones,Urine Negative (Negative); Leukocyte Esterase,Urine Negative (Negative); Nitrite,Urine Negative (Negative); PH,Urine 6.5 pH Units (5.0-8.0); Protein,Urine Trace mg/dL (Neg-Trace); Specific Gravity,Urine 1.011 (1.010-1.025); Urobilinogen,Urine Normal (Normal)
[2020-10-13] MEDS ORDERED: Ondansetron 4 MG/2 ML VIAL IVP PRN (00:28)
[2020-10-13] MEDS ORDERED: Naloxone 0.4 MG/ML INJ IVP PRN (00:28)
[2020-10-13 01:20] LABS: Amphetamine Screen,Urine Positive ng/mL (Cutoff=1000); Barbiturate Screen,Urine Negative ng/mL (Cutoff=200); Benzodiazepines Screen,Urine Negative ng/mL (Cutoff=200); Cannabinoid Screen,Urine Negative ng/mL (Cutoff = 50); Cocaine Screen,Urine Negative ng/mL (Cutoff= 300); Opiate Screen,Urine Negative ng/mL (Cutoff=300); Phencyclidine Screen,Urine Negative ng/mL (Cutoff=25)
[2020-10-13] MEDS ORDERED: Perflutren Lipid Microsphere 1.3 ML in 0.9 % Sodium Chloride 8.7 ML IVP PRN (02:08)
[2020-10-13 02:18] LABS: Basophils % 0.6 %; Eosinophils # 0.1 K/mcL (0.0-0.6); Eosinophils % 3.4 %; Hematocrit 36.2 % (37.5-50.1); Hemoglobin 11.9 g/dL (12.9-16.9); Immature Granulocytes % 0.3 % (0-4); Lymphocytes # 0.7 K/mcL (0.6-4.6); Lymphocytes % 22.4 %; Mean Corpuscular HGB Conc 32.9 g/dL (31.6-35.5); Mean Corpuscular Hemoglobin 30.7 pg (28.0-33.3); Mean Corpuscular Volume 93.3 fL (83.0-100.0); Mean Platelet Volume 10.3 fL (9.4-12.4); Monocytes # 0.6 K/mcL (0.0-1.3); Monocytes % 19.3 %; Neutrophils # 1.7 K/mcL (1.6-8.9); Platelet Count 136 K/mcL (140-400); Red Blood Count 3.88 M/mcL (4.19-5.50); Red Cell Distribution Width 13.6 % (11.5-14.5); White Blood Count 3.2 K/mcL (4.3-11.1)
[2020-10-13 02:29] LABS: INR 1.1; Prothrombin Time 12.9 Seconds (9.4-12.1)
[2020-10-13 02:32] LABS: Activated Partial Thrombo Time 26.7 Seconds (26.0-36.0)
[2020-10-13 02:34] LABS: Anisocytosis 1+ (Not Present); Platelet Estimate Slight Decrease (Normal)
[2020-10-13 02:40] LABS: Alanine Aminotransferase 9 Units/L (7-52); Albumin 3.7 g/dL (3.5-5.7); Albumin/Globulin Ratio 1.5 (1.1-2.2); Alkaline Phosphatase 72 Units/L (34-104); Aspartate Amino Transferase 13 Units/L (13-39); BUN/Creatinine Ratio 16 (6-26); Bilirubin,Total 1.6 mg/dL (0.3-1.0); Blood Urea Nitrogen 17 mg/dL (8-23); Calcium 8.5 mg/dL (8.6-10.3); Carbon Dioxide 25 mEq/L (23-29); Chloride 106 mEq/L (98-107); Globulin 2.4 g/dL (2.4-3.5); Glucose 103 mg/dL (70-105); Magnesium 2.1 mg/dL (1.6-2.6); Osmolality,Calculated 286 (280-300); Phosphorous 2.8 mg/dL (2.7-4.5); Potassium 3.9 mEq/L (3.5-5.1); Sodium 137 mEq/L (136-145); Total Protein 6.1 g/dL (6.4-8.9); eGFR For African Americans > 60 (> 60); eGFR For Non-African Americans > 60 (> 60)
[2020-10-13 02:44] LABS: Troponin I 0.04 ng/mL (< 0.04)
[2020-10-13] MEDS ORDERED: 0.9 % Sodium Chloride 1,000 ML IVC ONE (04:39)
[2020-10-13] MEDS: Aspirin Enteric Coated 81 MG Tablet PO SCH (09:36)
[2020-10-13] MEDS: Acetaminophen 325 MG TABLET PO PRN (20:55)
[2020-10-14] MEDS: Acetaminophen 325 MG TABLET PO PRN (08:00)
[2020-10-14] MEDS: Aspirin Enteric Coated 81 MG Tablet PO SCH (08:01)
[2020-10-14 12:09] LABS: Basophils % 0.3 %; Immature Granulocytes % 0.3 % (0-4)
[2020-10-14 12:11] LABS: Eosinophils # 0.1 K/mcL (0.0-0.6); Eosinophils % 1.5 %; Hematocrit 36.4 % (37.5-50.1); Hemoglobin 12.2 g/dL (12.9-16.9); Immature Platelets 4.7 % (1.1-6.1); Lymphocytes # 0.8 K/mcL (0.6-4.6); Lymphocytes % 13.9 %; Mean Corpuscular HGB Conc 33.5 g/dL (31.6-35.5); Mean Corpuscular Hemoglobin 30.7 pg (28.0-33.3); Mean Corpuscular Volume 91.5 fL (83.0-100.0); Monocytes # 0.7 K/mcL (0.0-1.3); Neutrophils # 4.3 K/mcL (1.6-8.9); Platelet Count 131 K/mcL (140-400); Red Blood Count 3.98 M/mcL (4.19-5.50); Red Cell Distribution Width 13.5 % (11.5-14.5); White Blood Count 5.9 K/mcL (4.3-11.1)
[2020-10-14 12:27] LABS: Alanine Aminotransferase 9 Units/L (7-52); Albumin 3.7 g/dL (3.5-5.7); Albumin/Globulin Ratio 1.5 (1.1-2.2); Alkaline Phosphatase 68 Units/L (34-104); Aspartate Amino Transferase 12 Units/L (13-39); BUN/Creatinine Ratio 17 (6-26); Bilirubin,Total 1.4 mg/dL (0.3-1.0); Blood Urea Nitrogen 14 mg/dL (8-23); Calcium 8.8 mg/dL (8.6-10.3); Carbon Dioxide 26 mEq/L (23-29); Chloride 107 mEq/L (98-107); Globulin 2.4 g/dL (2.4-3.5); Glucose 122 mg/dL (70-105); Osmolality,Calculated 288 (280-300); Potassium 3.5 mEq/L (3.5-5.1); Sodium 138 mEq/L (136-145); Total Protein 6.1 g/dL (6.4-8.9); eGFR For African Americans > 60 (> 60); eGFR For Non-African Americans > 60 (> 60)
[2020-10-15] MEDS: Benzonatate 100 MG CAPSULE PO PRN ×2 (01:48→19:55)
[2020-10-15 03:22] LABS: Hematocrit 36.3 % (37.5-50.1); Hemoglobin 12.1 g/dL (12.9-16.9); Mean Corpuscular HGB Conc 33.3 g/dL (31.6-35.5); Mean Corpuscular Hemoglobin 30.6 pg (28.0-33.3); Mean Corpuscular Volume 91.9 fL (83.0-100.0); Mean Platelet Volume 10.7 fL (9.4-12.4); Platelet Count 149 K/mcL (140-400); Red Blood Count 3.95 M/mcL (4.19-5.50); Red Cell Distribution Width 13.6 % (11.5-14.5); White Blood Count 5.8 K/mcL (4.3-11.1)
[2020-10-15 03:31] LABS: Alanine Aminotransferase 8 Units/L (7-52); Albumin 3.7 g/dL (3.5-5.7); Albumin/Globulin Ratio 1.5 (1.1-2.2); Alkaline Phosphatase 68 Units/L (34-104); Aspartate Amino Transferase 11 Units/L (13-39); BUN/Creatinine Ratio 25 (6-26); Bilirubin,Total 1.2 mg/dL (0.3-1.0); Blood Urea Nitrogen 22 mg/dL (8-23); Calcium 8.8 mg/dL (8.6-10.3); Carbon Dioxide 24 mEq/L (23-29); Chloride 106 mEq/L (98-107); Globulin 2.5 g/dL (2.4-3.5); Glucose 107 mg/dL (70-105); Osmolality,Calculated 290 (280-300); Potassium 3.9 mEq/L (3.5-5.1); Sodium 138 mEq/L (136-145); Total Protein 6.2 g/dL (6.4-8.9); eGFR For African Americans > 60 (> 60); eGFR For Non-African Americans > 60 (> 60)
[2020-10-15] MEDS: Aspirin Enteric Coated 81 MG Tablet PO SCH (07:52)
[2020-10-15] MEDS: Melatonin 3 MG TABLET PO PRN (19:55)
[2020-10-16 01:17] LABS: Hematocrit 36.9 % (37.5-50.1); Hemoglobin 12.4 g/dL (12.9-16.9); Mean Corpuscular HGB Conc 33.6 g/dL (31.6-35.5); Mean Corpuscular Hemoglobin 30.8 pg (28.0-33.3); Mean Corpuscular Volume 91.6 fL (83.0-100.0); Mean Platelet Volume 10.3 fL (9.4-12.4); Platelet Count 151 K/mcL (140-400); Red Blood Count 4.03 M/mcL (4.19-5.50); Red Cell Distribution Width 13.3 % (11.5-14.5); White Blood Count 7.3 K/mcL (4.3-11.1)
[2020-10-16 01:38] LABS: Alanine Aminotransferase 7 Units/L (7-52); Albumin 3.6 g/dL (3.5-5.7); Albumin/Globulin Ratio 1.4 (1.1-2.2); Alkaline Phosphatase 66 Units/L (34-104); Aspartate Amino Transferase 11 Units/L (13-39); BUN/Creatinine Ratio 26 (6-26); Bilirubin,Total 1.4 mg/dL (0.3-1.0); Blood Urea Nitrogen 19 mg/dL (8-23); Calcium 8.7 mg/dL (8.6-10.3); Carbon Dioxide 23 mEq/L (23-29); Chloride 104 mEq/L (98-107); Globulin 2.5 g/dL (2.4-3.5); Glucose 113 mg/dL (70-105); Osmolality,Calculated 283 (280-300); Potassium 3.8 mEq/L (3.5-5.1); Sodium 135 mEq/L (136-145); Total Protein 6.1 g/dL (6.4-8.9); eGFR For African Americans > 60 (> 60); eGFR For Non-African Americans > 60 (> 60)
[2020-10-16] MEDS: Acetaminophen 325 MG TABLET PO PRN (08:08)
[2020-10-16] MEDS: Aspirin Enteric Coated 81 MG Tablet PO SCH (08:08)
[2020-10-16] MEDS ORDERED: Furosemide 20 MG TABLET PO PRN (13:17)
[2020-10-17 06:08] LABS: Hematocrit 37.1 % (37.5-50.1); Hemoglobin 12.8 g/dL (12.9-16.9); Mean Corpuscular HGB Conc 34.5 g/dL (31.6-35.5); Mean Corpuscular Hemoglobin 30.6 pg (28.0-33.3); Mean Corpuscular Volume 88.8 fL (83.0-100.0); Mean Platelet Volume 10.5 fL (9.4-12.4); Platelet Count 158 K/mcL (140-400); Red Blood Count 4.18 M/mcL (4.19-5.50); Red Cell Distribution Width 13.1 % (11.5-14.5); White Blood Count 7.3 K/mcL (4.3-11.1)
[2020-10-17 06:35] LABS: Alanine Aminotransferase 7 Units/L (7-52); Albumin 3.9 g/dL (3.5-5.7); Albumin/Globulin Ratio 1.5 (1.1-2.2); Alkaline Phosphatase 68 Units/L (34-104); Aspartate Amino Transferase 11 Units/L (13-39); BUN/Creatinine Ratio 27 (6-26); Bilirubin,Total 1.2 mg/dL (0.3-1.0); Blood Urea Nitrogen 20 mg/dL (8-23); Carbon Dioxide 23 mEq/L (23-29); Chloride 106 mEq/L (98-107); Globulin 2.6 g/dL (2.4-3.5); Glucose 112 mg/dL (70-105); Osmolality,Calculated 285 (280-300); Sodium 136 mEq/L (136-145); Total Protein 6.5 g/dL (6.4-8.9); eGFR For African Americans > 60 (> 60); eGFR For Non-African Americans > 60 (> 60)
[2020-10-17] MEDS: Aspirin Enteric Coated 81 MG Tablet PO SCH (07:59)
[2020-10-17] MEDS: Acetaminophen 325 MG TABLET PO PRN (07:59)
[2020-10-17] MEDS: Benzonatate 100 MG CAPSULE PO PRN (21:36)
[2020-10-17] MEDS: Melatonin 3 MG TABLET PO PRN (21:36)
[2020-10-18 10:17] VITALS: BP 117/76
[2020-10-18] MEDS: Aspirin Enteric Coated 81 MG Tablet PO SCH (10:17)
[2020-10-18 10:24] LABS: Hematocrit 38.5 % (37.5-50.1); Hemoglobin 13.1 g/dL (12.9-16.9); Mean Corpuscular Hemoglobin 30.6 pg (28.0-33.3); Mean Platelet Volume 10.1 fL (9.4-12.4); Platelet Count 171 K/mcL (140-400); Red Blood Count 4.28 M/mcL (4.19-5.50); Red Cell Distribution Width 13.2 % (11.5-14.5); White Blood Count 6.9 K/mcL (4.3-11.1)
[2020-10-18 10:47] LABS: Alanine Aminotransferase 8 Units/L (7-52); Albumin 3.9 g/dL (3.5-5.7); Albumin/Globulin Ratio 1.5 (1.1-2.2); Alkaline Phosphatase 62 Units/L (34-104); Aspartate Amino Transferase 11 Units/L (13-39); BUN/Creatinine Ratio 29 (6-26); Blood Urea Nitrogen 25 mg/dL (8-23); Calcium 9.2 mg/dL (8.6-10.3); Carbon Dioxide 26 mEq/L (23-29); Chloride 107 mEq/L (98-107); Globulin 2.6 g/dL (2.4-3.5); Glucose 112 mg/dL (70-105); Osmolality,Calculated 293 (280-300); Potassium 4.3 mEq/L (3.5-5.1); Sodium 139 mEq/L (136-145); Total Protein 6.5 g/dL (6.4-8.9); eGFR For African Americans > 60 (> 60); eGFR For Non-African Americans > 60 (> 60)
== END 2020-10-18 14:12 | disposition home health service (06) ==
LOC: EMEROOARM 20:38 → 3BNU 20:38 → SUATTDRO 23:24 → 3BNU 10-13 00:07
PROVIDERS: ADMIT Internal Medicine; ATTEND Nurse Practitioner

== ENCOUNTER 2022-05-18 18:08 | Inpatient (IN) ==
[2022-05-18] MEDS ORDERED: Naloxone 0.4 MG/ML INJ IVP PRN (20:42)
[2022-05-18] MEDS ORDERED: Ondansetron 4 MG/2 ML VIAL IVP PRN (20:42)
[2022-05-18] MEDS ORDERED: Aspirin Enteric Coated 325 MG Tablet PO ONE (22:00)
[2022-05-18] MEDS ORDERED: Potassium Chloride Elixir 20 MEQ/15 ML UDC PO ONE (22:30)
[2022-05-19] MEDS ORDERED: *HR* Heparin 5,000 UNIT/ML VIAL IVP PRN (00:04)
[2022-05-19] MEDS: *HR* Heparin 5,000 UNIT/ML VIAL IVP PRN ×2 (00:16→08:24)
[2022-05-19] MEDS: Heparin 25,000UNIT/250ML 1/2NS 25,000 UNIT/250 ML IV.SOLN IVC SCH ×2 (00:17→22:57)
[2022-05-19] MEDS ORDERED: 0.9 % Sodium Chloride 500 ML IVC ONE (02:10)
[2022-05-19 02:58] LABS: Bilirubin,Urine Negative (Negative); Blood,Urine Trace (Negative); Clarity,Urine Clear (Clear); Color,Urine Yellow (Yellow); Glucose,Urine (UA) Normal (Normal); Ketones,Urine Negative (Negative); Leukocyte Esterase,Urine Negative (Negative); Mucus,Urine Moderate per lpf (None-Few); Nitrite,Urine Negative (Negative); Protein,Urine 30 mg/dL (Neg-Trace); RBC,Urine 0-3 per hpf (0-3); Specific Gravity,Urine > 1.030 (1.010-1.025); Squamous Epithelial Cell,Urine Few per hpf (None-Few); WBC,Urine 0-3 per hpf (0-3)
[2022-05-19 05:26] LABS: Basophils % 0.3 %; Eosinophils % 0.9 %; Hematocrit 30.4 % (37.5-50.1); Hemoglobin 10.3 g/dL (12.9-16.9); Immature Granulocytes % 0.3 % (0-4); Lymphocytes # 0.9 K/mcL (0.6-4.6); Lymphocytes % 26.6 %; Mean Corpuscular HGB Conc 33.9 g/dL (31.6-35.5); Mean Corpuscular Hemoglobin 31.4 pg (28.0-33.3); Mean Corpuscular Volume 92.7 fL (83.0-100.0); Mean Platelet Volume 10.3 fL (9.4-12.4); Monocytes # 0.3 K/mcL (0.0-1.3); Monocytes % 10.5 %; Platelet Count 102 K/mcL (140-400); Red Blood Count 3.28 M/mcL (4.19-5.50); Red Cell Distribution Width 13.6 % (11.5-14.5); Segmented Neutrophils % 61.4 %; White Blood Count 3.2 K/mcL (4.3-11.1)
[2022-05-19 05:33] LABS: INR 1.3; Prothrombin Time 14.1 Seconds (9.4-12.1)
[2022-05-19 05:49] LABS: Alanine Aminotransferase 10 Units/L (7-52); Albumin 3.4 g/dL (3.5-5.7); Albumin/Globulin Ratio 1.9 (1.1-2.2); Alkaline Phosphatase 49 Units/L (34-104); Aspartate Amino Transferase 30 Units/L (13-39); BUN/Creatinine Ratio 27 (6-26); Bilirubin,Direct 0.4 mg/dL (0.0-0.2); Bilirubin,Indirect 1.9 mg/dL (0.0-1.0); Bilirubin,Total 2.3 mg/dL (0.3-1.0); Blood Urea Nitrogen 24 mg/dL (8-23); Calcium 8.3 mg/dL (8.6-10.3); Carbon Dioxide 24 mEq/L (23-29); Chloride 107 mEq/L (98-107); Cholesterol 89 mg/dL (< 200); Globulin 1.8 g/dL (2.4-3.5); Glucose 103 mg/dL (70-105); HDL Cholesterol 45 mg/dL (40-59); LDL Cholesterol,Calculated 31 mg/dL (< 100); Magnesium 1.9 mg/dL (1.6-2.6); Osmolality,Calculated 288 (280-300); Phosphorous 3.6 mg/dL (2.7-4.5); Potassium 3.3 mEq/L (3.5-5.1); Sodium 137 mEq/L (136-145); Total Protein 5.2 g/dL (6.4-8.9); Triglycerides 66 mg/dL (< 150)
[2022-05-19 06:00] LABS: Thyroid Stimulating Hormone 1.178 mcIU/mL (0.340-5.600)
[2022-05-19] MEDS: Aspirin Enteric Coated 81 MG Tablet PO SCH (12:15)
[2022-05-20] MEDS: Acetaminophen 325 MG TABLET PO PRN (06:26)
[2022-05-20] MEDS: Aspirin Enteric Coated 81 MG Tablet PO SCH (08:20)
[2022-05-20] MEDS ORDERED: Ipratropium/Albuterol Neb 3 ML IH PRN (11:43)
[2022-05-20] MEDS: Furosemide 20 MG/2 ML VIAL IVP SCH (13:34)
[2022-05-20] MEDS: MethylPREDNISolone 40 MG/ML VIAL IVP SCH ×2 (16:48→23:26)
[2022-05-21] MEDS: Aspirin Enteric Coated 81 MG Tablet PO SCH (09:10)
[2022-05-21] MEDS: MethylPREDNISolone 40 MG/ML VIAL IVP SCH ×2 (09:13→15:28)
[2022-05-21] MEDS: Furosemide 20 MG/2 ML VIAL IVP SCH (09:13)
[2022-05-21] MEDS ORDERED: E-Z-HD (BARIUM SULF) SUSPENSION PO ONE (11:03)
[2022-05-21] MEDS ORDERED: E-Z-PAQUE (BARIUM SULF) SUSP 1 BOTTLE PO ONE (11:03)
[2022-05-21 15:15] VITALS: BP 106/60; PULSE 81; TEMP 97.4; O2SAT 92
[2022-05-21] MEDS: Acetaminophen 325 MG TABLET PO PRN (16:08)
== END 2022-05-21 19:45 | disposition home or self-care (01) | DRG 280 ==
LOC: 2NENU
PROVIDERS: ADMIT Internal Medicine; ATTEND Internal Medicine